=== PATIENT | male | born 1930 | race Caucasian/White ===

== ENCOUNTER 2017-12-14 03:09 | Emergency (ER) | payer MEDICARE, OTHER ==
--- NOTE | 2017-12-14 03:26 | ED Physician Documentation ---
PD HPI MALE - Stated complaint Stated Complaint: MALE - Chief complaint Chief Complaint: Abd Pain - History obtained from History obtained from: Patient - History of Present Illness Timing - onset: Yesterday Timing - details: Gradual onset, Still present Associated symptoms: Unable to urinate, Hematuria Similar symptoms before: Has not had sx before Recently seen: Not recently seen - Additional information Additional information: Patient is an 87 year old male with a history of prostate CA over 10 years ago who is presenting to the emergency department for urinary retention. Patient states that since yesterday he has not been able to fully urinate. He has had some dribble and has had some drops of blood but he has not been able to empty his bladder. Review of Systems Constitutional: denies: Fever, Chills Eyes: reports: Reviewed and negative Ears: reports: Reviewed and negative Nose: reports: Reviewed and negative Throat: reports: Reviewed and negative Cardiac: reports: Reviewed and negative GI: reports: Abdominal Pain : reports: Unable to Void, Hematuria Skin: denies: Rash, Lesions Musculoskeletal: reports: Reviewed and negative Neurologic: reports: Reviewed and negative Immunocompromised: denies: Immunocompromised PD PAST MEDICAL HISTORY - Past Medical History Past Medical History: Yes GI: GERD : Other Other Past Medical History: Prostate CA - Past Surgical History Past Surgical History: Yes - Present Medications Home Medications: Ambulatory Orders Medication Instructions Recorded Confirmed Hydrochlorothiazide 1 tab PO DAILY 12/14/17 Omeprazole 1 cap PO DAILY 12/14/17 - Allergies Allergies/Adverse Reactions: Allergies Allergy/AdvReac Type Severity Reaction Status Date / Time No Known Drug Allergies Allergy Verified 12/14/17 03:22 - Social History Does the pt smoke?: No Smoking Status: Never smoker Does the pt drink ETOH?: No Does the pt have substance abuse?: No - Immunizations Immunizations are current?: Yes - POLST Patient has POLST: No PD ED PE NORMAL - HEENT HEENT: Atraumatic - Cardiac Cardiac: RRR, No murmur - Respiratory Respiratory: No respiratory distress - Derm Derm: Normal color, Warm and dry, No rash - Extremities Extremities: No deformity - Neuro Neuro: Alert and oriented X 3, No motor deficit, No sensory deficit, Normal speech Eye Opening: Spontaneous PD ED PE EXPANDED - General General: Alert - HEENT HEENT: Dry mucous membranes - Abdomen Abdomen: Distended, Tender to palpation, Suprapubic Results - Vitals Vitals: Vital Signs - 24 hr 12/14/17 03:10 Temperature 36.5 C Heart Rate 84 Respiratory 18 Rate Blood Pressure 210/92 H O2 Saturation 98 Oxygen O2 Source Room air - Labs Labs: Laboratory Tests 12/14/17 03:34 Urine Color YELLOW Urine Clarity HAZY Urine pH 5.5 Ur Specific [place] >=1.030 H Urine Protein 100 H Urine Glucose (UA) NEGATIVE Urine Ketones TRACE Urine Occult Blood LARGE H Urine Nitrite NEGATIVE Urine Bilirubin NEGATIVE Urine Urobilinogen 0.2 (NORMAL) Ur Leukocyte Esterase NEGATIVE Urine RBC TNTC H Urine WBC 0-3 Ur Squamous Epith Cells FEW Squamous Urine Bacteria Few Urine Casts 3-5 Course Granular Ur Microscopic Review INDICATED Urine Culture Comments NOT INDICATED PD MEDICAL DECISION MAKING - ED course Complexity details: reviewed old records, reviewed results, re-evaluated patient , considered differential, d/w patient ED course: Patient was seen and examined at bedside. bladder scanner was performed and shoed that the patient had urinary retention. Catheter was placed a few clots were removed. about 500ml of urine came out. Urine was sent. Patient's bladder was flushed with 250 ml of saline and it was draining clear. patient's urine showed hematuria but did not clearly indicate infection. Patient was educated on his leg bag. Patient required no further work up and was stable for discharge with outpatient follow up. Departure - Departure Disposition: 01 Home, Self Care Clinical Impression: Acute urinary retention Condition: Good Instructions: ED Retention Urinary Male Follow-Up: [facility] [Provider Group] Dawit Elias MD [Primary Care Provider] - Within 3 Days Comments: Your symptoms today were being caused by urinary retention secondary to a clot in your urethra. You will need to see your doctor on friday and have him/her remove the catheter. You should also call the urology group to schedule a follow up appointment. You may return to the emergency department at any time for new, worsening or uncontrollable symptoms.
[2017-12-14 03:44] LABS: BILIRUBIN,URINE NEGATIVE (NEGATIVE); GLUCOSE, URINE (UA) NEGATIVE (NEGATIVE); KETONES,URINE (UA) TRACE mg/dL (NEGATIVE); LEUKOCYTE ESTERASE, URINE NEGATIVE (NEGATIVE); NITRITE,URINE NEGATIVE (NEGATIVE); OCCULT BLOOD,URINE LARGE (NEGATIVE); PH,URINE 5.5 PH (5.0-7.5); PROTEIN,URINE 100 mg/dL (NEGATIVE); UROBILINOGEN,URINE 0.2 (NORMAL) E.U./dL (NORMAL)
[2017-12-14 03:45] LABS: CLARITY,URINE HAZY (CLEAR)
[2017-12-14 03:50] LABS: BACTERIA,URINE Few /HPF (None Seen); CASTS, URINE 3-5 Course Granular /LPF; RBC,URINE TNTC /HPF (0-5); SQUAMOUS EPITHELIAL CELL,UR FEW Squamous (<= Few)
[2017-12-14 03:59] VITALS: BP 196/94
== END 2017-12-14 04:25 | disposition home or self-care (01) ==
LOC: ED 03:09
DX: R33.9 Retention of urine, unspecified (principal); Z85.46 Personal history of malignant neoplasm of prostate
CPT/HCPCS: 51703; 51798; 81001; 81003; 87086; 99283

== ENCOUNTER 2017-12-18 08:53 | Outpatient (CLI) | payer MEDICARE, OTHER ==
[2017-12-18 09:29] LABS: BASOPHILS % (AUTO) 0.8 %; EOSINOPHILS % (AUTO) 0.9 %; HGB - HEMOGLOBIN 12.6 g/dL (14.0-18.0); LYMPHOCYTES # (AUTO) 1.2 10^3/uL (1.5-3.5); LYMPHOCYTES % (AUTO) 25.2 %; MEAN CORPUSCULAR HEMOGLOBIN 33.2 pg (27.0-31.0); MEAN CORPUSCULAR HGB CONC 34.2 g/dL (32.0-36.0); MEAN CORPUSCULAR VOLUME 97.2 fL (80.0-94.0); MEAN PLATELET VOLUME 9.7 fL (7.4-11.4); MONOCYTES # (AUTO) 0.5 10^3/uL (0.0-1.0); MONOCYTES % (AUTO) 9.6 %; NEUTROPHILS # (AUTO) 3.1 10^3/uL (1.5-6.6); NEUTROPHILS % (AUTO) 63.5 %; PLT - PLATELET COUNT 119 10^3/uL (130-450); RED CELL DISTRIBUTION WIDTH 13.2 % (12.0-15.0); WHITE BLOOD COUNT 4.9 x10^3/uL (4.8-10.8)
[2017-12-18 09:39] LABS: BILIRUBIN,URINE NEGATIVE (NEGATIVE); GLUCOSE, URINE (UA) NEGATIVE (NEGATIVE); KETONES,URINE (UA) NEGATIVE (NEGATIVE); LEUKOCYTE ESTERASE, URINE NEGATIVE (NEGATIVE); NITRITE,URINE NEGATIVE (NEGATIVE); OCCULT BLOOD,URINE TRACE-INTA (NEGATIVE); PROTEIN,URINE 30 mg/dL (NEGATIVE); UROBILINOGEN,URINE 0.2 (NORMAL) E.U./dL (NORMAL)
[2017-12-18 09:47] LABS: ALBUMIN 3.9 g/dL (3.2-5.5); ALBUMIN/GLOBULIN RATIO 1.1 (1.0-2.2); ALKALINE PHOSPHATASE 63 IU/L (42-121); ALT ALANINE AMINOTRANSFERASE 19 IU/L (10-60); AST ASPARTATE AMINOTRANSFERASE 24 IU/L (10-42); BILIRUBIN,TOTAL 0.9 mg/dL (0.2-1.0); BUN - BLOOD UREA NITROGEN 21 mg/dL (6-20); CALCIUM 8.8 mg/dL (8.5-10.3); CARBON DIOXIDE - CO2 27 mmol/L (21-32); CHLORIDE 101 mmol/L (101-111); CHOL/HDL RATIO 4.2 (<5.0); CHOLESTEROL 199 mg/dL; CREATININE 1.1 mg/dL (0.6-1.2); GFR - MDRD 63 (>89); GLUCOSE 128 mg/dL (70-100); HDL CHOLESTEROL 47 mg/dL; LDL CHOLESTEROL,CALCULATED 139 mg/dL; SODIUM 139 mmol/L (135-145); TOTAL PROTEIN 7.3 g/dL (6.7-8.2); VLDL CHOLESTEROL 13 mg/dL
[2017-12-18 09:55] LABS: BACTERIA,URINE None Seen /HPF (None Seen); CLARITY,URINE HAZY (CLEAR); RBC,URINE 0-5 /HPF (0-5); SQUAMOUS EPITHELIAL CELL,UR RARE Squamous (<= Few)
[2017-12-18 09:56] LABS: MUCUS,URINE Few Strands
== END 2017-12-18 08:54 | disposition home or self-care (01) ==
LOC: LAB 08:53
PROVIDERS: ATTEND Physician Assistant Medical
DX: E78.5 Hyperlipidemia, unspecified (principal); R31.9 Hematuria, unspecified; C61 Malignant neoplasm of prostate; K21.9 Gastro-esophageal reflux disease without esophagitis
CPT/HCPCS: 36415; 80053; 80061; 81001; 85025; G0103; 83721; 84153; 87086

== ENCOUNTER 2018-02-12 09:02 | Outpatient (CLI) | payer MEDICARE, OTHER ==
[2018-02-12 09:23] LABS: CREATININE 1.2 mg/dL (0.6-1.2)
== END 2018-02-12 09:03 | disposition home or self-care (01) ==
LOC: LAB 09:02
PROVIDERS: ATTEND Physician Assistant
DX: R31.0 Gross hematuria (principal)
CPT/HCPCS: 36415; 82565; 84520

== ENCOUNTER 2018-02-16 08:26 | Outpatient (CLI) | payer MEDICARE, OTHER ==
[2018-02-16] MEDS ORDERED: IOPAMIDOL-300 100 ML VIAL ONE (09:31)
[2018-02-16] MEDS ORDERED: IOPAMIDOL-300 100 ML VIAL IVP ONE (10:01)
--- NOTE | 2018-02-16 12:24 | CT Report ---
CT IVP: 02/16/2018 CLINICAL INDICATION: Gross hematuria. TECHNIQUE: Axial CT images of the abdomen and pelvis were obtained prior to and following 100 mL Isovue 300 intravenously, using split bolus technique. COMPARISON: No previous CT is available for comparison. FINDINGS: Limited evaluation of the lung bases is unremarkable. A moderate hiatal hernia is incidentally noted. ABDOMEN: On the unenhanced images, there is no evidence of nephrolithiasis or hydronephrosis. The kidneys demonstrate symmetric uptake and excretion of contrast. Cortical cysts are present. No solid renal mass or hydronephrosis is present. The liver, spleen, pancreas and adrenal glands are unremarkable. The gallbladder is not dilated. No bowel dilatation, free gas, or free fluid is present. No abdominal adenopathy is seen. PELVIS: The distal ureters are unremarkable. Brachytherapy seeds are noted in the prostate bed. No pelvic adenopathy or free fluid is present. The appendix is seen in the right lower quadrant and is normal in caliber. Osseous structures demonstrate degenerative changes. IMPRESSION: 1. NO EVIDENT ETIOLOGY FOR THE PATIENT'S HEMATURIA. CONSIDER CORRELATION WITH CYSTOSCOPY. 2. MODERATE HIATAL HERNIA. CT DOSE REDUCTION STATEMENT In accordance with CT protocol optimization, one or more of the following dose reduction techniques were utilized for this exam: automated exposure control, adjustment of mA and/or KV based on patient size, or use of iterative reconstructive technique. TD: 02/16/2018 12:23
== END 2018-02-16 08:27 | disposition home or self-care (01) ==
LOC: LAB 08:26 → DI 08:27
PROVIDERS: ATTEND Physician Assistant
DX: R31.0 Gross hematuria (principal)
CPT/HCPCS: 74178; Q9967

== ENCOUNTER 2018-12-23 14:39 | Outpatient (CLI) | payer MEDICARE, OTHER ==
[2018-12-23 15:00] LABS: CALCIUM 8.9 mg/dL (8.5-10.3); CREATININE 1.1 mg/dL (0.6-1.2)
== END 2018-12-23 14:40 | disposition home or self-care (01) ==
LOC: LAB 14:39
PROVIDERS: ATTEND Urology
DX: N32.89 Other specified disorders of bladder (principal); Z85.51 Personal history of malignant neoplasm of bladder
CPT/HCPCS: 36415; 80048

== ENCOUNTER 2019-06-08 14:08 | Outpatient (CLI) | payer MEDICARE, OTHER ==
[2019-06-08 14:48] LABS: CREATININE 1.4 mg/dL (0.6-1.2)
== END 2019-06-08 14:09 | disposition home or self-care (01) ==
LOC: LAB 14:08
PROVIDERS: ATTEND Urology
DX: Z08 Encounter for follow-up examination after completed treatment for malignant neoplasm (principal); Z85.51 Personal history of malignant neoplasm of bladder
CPT/HCPCS: 36415; 82565; 84520

== ENCOUNTER 2019-06-09 08:57 | Outpatient (CLI) | payer MEDICARE, OTHER ==
[2019-06-09] MEDS ORDERED: IOVERSOL 320 100 ML VIAL IVP ONE ×2 (09:32→09:44)
--- NOTE | 2019-06-10 11:13 | CT Report ---
Reason: HISTORY OF BLADDER CANCER Procedure Date: 06/09/2019 Accession Number: [id number] / [id number] Procedure: CT - IVP CPT Code: FULL RESULT: EXAM: CT ABDOMEN AND PELVIS WITHOUT AND WITH CONTRAST (CT IVP) EXAM DATE: 06/09/2019 10:05 AM. CLINICAL HISTORY: History of bladder cancer. COMPARISONS: IVP 02/16/2018 9:36 AM. TECHNIQUE: Routine helical imaging was performed through the kidneys, ureters and bladder in the precontrast, postcontrast and delayed phase. IV Contrast: OPTI 320 100 mL. Reconstructions: Coronal and sagittal. In accordance with CT protocol optimization, one or more of the following dose reduction techniques were utilized for this exam: automated exposure control, adjustment of mA and/or KV based on patient size, or use of iterative reconstructive technique. FINDINGS: Lung Bases: There is a 1 cm left lung nodule, not significantly changed as visualized. Both lung bases demonstrate dependent changes. Liver: Hypoattenuating consistent with hepatic steatosis. Gallbladder/Bile Ducts: Unremarkable. Spleen: Normal. Pancreas: Normal. Adrenal Glands: Normal. Kidneys/Bladder: Right Kidney/Ureter: No renal or ureteral stones. No hydronephrosis or hydroureter. Renal hypodensities too small to characterize are identified. Left Kidney/Ureter: No renal or ureteral stones. No hydronephrosis or hydroureter. Both an exophytic 8 x 6.5 cm renal cyst and a 1.8 x 1.8 cm renal cyst measuring greater than simple fluid by CT criteria; these have not significantly changed compared to 2018. Additional renal hypodensities are too small to characterize. Bladder: No stones. No wall thickening or mass with change of the bladder base contour presumably related to the prostate discussed below. Peritoneal Cavity/Bowel: Normal. No free fluid, free air or adenopathy. No masses or acute inflammatory process. Pelvic Organs: Prostate is again noted to contain fiducial markers and hypertrophied with dome of the prostate indenting the base of the bladder in a configuration similar to before. Vasculature: No aneurysms or other significant abnormality. Bones: No definite aggressive osseous lesions. Other: None. IMPRESSION: Recommend renal ultrasound to determine whether the left renal cysts can be characterized as simple. Stable CT appearance of bladder and prostate. RADIA
== END 2019-06-09 08:58 | disposition home or self-care (01) ==
LOC: DI 08:57
PROVIDERS: ATTEND Urology
DX: N28.1 Cyst of kidney, acquired (principal); Z85.51 Personal history of malignant neoplasm of bladder
CPT/HCPCS: 74178; Q9967

== ENCOUNTER 2019-08-12 12:44 | Emergency (ER) | payer MEDICARE, OTHER ==
[2019-08-12 13:01] VITALS: BP 144/72
--- NOTE | 2019-08-12 13:34 | ED Physician Documentation ---
PD HPI MALE - Stated complaint Stated Complaint: CATH REMOVAL - Chief complaint Chief Complaint: General - History obtained from History obtained from: Patient, Family - History of Present Illness Timing - onset: Today Timing - duration: Hours Timing - details: Abrupt onset, Still present in ED Associated symptoms: Hong problem Similar symptoms before: Has not had sx before Recently seen: Surgery - Additional information Additional information: 88-year-old male who has a history of bladder cancer has been undergoing routine repeat cystoscopy and he has had cystoscopy done about 3 days ago he has had a catheter in place since then and he was getting ready to remove the catheter himself under the instruction of his urologist when he discovered that he was unable to do this. It appears he was using the wrong port to attempt to deflate the balloon. He is here now for us to remove the catheter for him. Review of Systems Constitutional: denies: Fever Eyes: denies: Decreased vision Ears: denies: Ear pain Nose: denies: Congestion Throat: denies: Sore throat Respiratory: denies: Cough GI: denies: Nausea, Vomiting : reports: Hong Problem. denies: Dysuria, Frequency PD PAST MEDICAL HISTORY - Past Medical History GI: GERD : Other - Past Surgical History Past Surgical History: Yes - Present Medications Home Medications: Ambulatory Orders Medication Instructions Recorded Confirmed Hydrochlorothiazide 1 tab PO DAILY 12/14/17 Omeprazole 1 cap PO DAILY 12/14/17 - Allergies Allergies/Adverse Reactions: Allergies Allergy/AdvReac Type Severity Reaction Status Date / Time No Known Drug Allergies Allergy Verified 08/12/19 12:58 - Social History Does the pt smoke?: No Smoking Status: Never smoker Does the pt drink ETOH?: No Does the pt have substance abuse?: No - Immunizations Immunizations are current?: Yes - POLST Patient has POLST: No PD ED PE NORMAL - Vitals Vital signs reviewed: Yes (hypertensive ) - General General: No acute distress, Well developed/nourished - HEENT HEENT: Atraumatic, PERRL, EOMI - Respiratory Respiratory: No respiratory distress - Derm Derm: Normal color, Warm and dry, No rash - Extremities Extremities: No deformity, No edema - Neuro Neuro: Alert and oriented X 3, clinical exercise physiologist 2-12 intact, No motor deficit, No sensory deficit, Normal speech Eye Opening: Spontaneous Motor: Obeys Commands Verbal: Oriented GCS Score: 15 - Psych Psych: Normal mood, Normal affect Results - Vitals Vitals: Vital Signs - 24 hr 08/12/19 12:58 Temperature 36.8 C Heart Rate 89 Respiratory 17 Rate Blood Pressure 144/72 H O2 Saturation 98 Oxygen O2 Source Room air PD MEDICAL DECISION MAKING - ED course Complexity details: considered differential, d/w patient, d/w family ED course: 88-year-old male with indwelling Hong catheter has used the wrong port to attempt to deflate the balloon and the RN is able to remove the catheter. Departure - Departure Disposition: 01 Home, Self Care Clinical Impression: Encounter for Hong catheter removal Condition: Stable Instructions: ED Catheter Care Hong Follow-Up: Nina Aden MD [Physician No Access] -
== END 2019-08-12 13:53 | disposition home or self-care (01) ==
LOC: ED 12:44
DX: Z46.6 Encounter for fitting and adjustment of urinary device (principal); Z85.51 Personal history of malignant neoplasm of bladder
CPT/HCPCS: 99282; 99283

== ENCOUNTER 2019-09-30 13:18 | Emergency (ER) | payer MEDICARE, OTHER ==
--- NOTE | 2019-09-30 13:54 | ED Physician Documentation ---
PD HPI NVD - Stated complaint Stated Complaint: FEVER - Chief complaint Chief Complaint: Fever - History obtained from History obtained from: Patient (This is a relatively healthy 89-year-old gentleman with remote history of prostate cancer, he had some sort of bladder abnormality that was assessed by cystoscopy on August 10 and it was found that he had probably bladder cancer around an old radiation seed from his prostate cancer. He has a repeat cystoscopy scheduled for next month, but for the last 3 to 4 weeks he has been having some intermittent low back pain along with purulent-looking urine and urinary incontinence and chills and weakness.) Review of Systems Constitutional: reports: Chills. denies: Fever Nose: denies: Rhinorrhea / runny nose, Congestion Cardiac: denies: Chest pain / pressure, Palpitations Respiratory: denies: Dyspnea, Cough PD PAST MEDICAL HISTORY - Past Medical History GI: GERD : Other - Past Surgical History Past Surgical History: Yes - Present Medications Home Medications: Ambulatory Orders Medication Instructions Recorded Confirmed Hydrochlorothiazide 1 tab PO DAILY 12/14/17 Omeprazole 1 cap PO DAILY 12/14/17 Ciprofloxacin HCl [Cipro] 500 mg PO BID #20 tablet 09/30/19 - Allergies Allergies/Adverse Reactions: Allergies Allergy/AdvReac Type Severity Reaction Status Date / Time No Known Drug Allergies Allergy Verified 09/30/19 13:29 - Social History Does the pt smoke?: No Smoking Status: Never smoker Does the pt drink ETOH?: No Does the pt have substance abuse?: No - Immunizations Immunizations are current?: Yes - POLST Patient has POLST: No PD ED PE NORMAL - Vitals Vital signs reviewed: Yes - General General: Alert and oriented X 3, No acute distress - Abdomen Abdomen: Normal bowel sounds, Soft, Non tender - Back Back: No CVA TTP, No spinal TTP - Neuro Neuro: Alert and oriented X 3, Normal speech Results - Vitals Vitals: Vital Signs - 24 hr 09/30/19 13:29 Temperature 37.1 C Heart Rate 73 Respiratory 16 Rate Blood Pressure 136/68 H O2 Saturation 97 Oxygen O2 Source Room air - Labs Labs: Laboratory Tests 09/30/19 13:43 Urine Color YELLOW Urine Clarity SL. CLOUDY Urine pH 6.0 Ur Specific [place] 1.025 Urine Protein 100 H Urine Glucose (UA) NEGATIVE Urine Ketones TRACE Urine Occult Blood SMALL H Urine Nitrite NEGATIVE Urine Bilirubin NEGATIVE Urine Urobilinogen 1 (NORMAL) Ur Leukocyte Esterase MODERATE H Urine RBC 0-5 Urine WBC >25 H Ur Squamous Epith Cells RARE Squamous Urine Bacteria Moderate H Ur Microscopic Review INDICATED Urine Culture Comments INDICATED PD MEDICAL DECISION MAKING - ED course ED course: 89-year-old gentleman presents with fairly typical symptoms for a bladder infection and found to have same treated with Cipro. Departure - Departure Disposition: 01 Home, Self Care Clinical Impression: Cystitis Condition: Good Record reviewed to determine appropriate education?: Yes Instructions: ED UTI Cystitis Male Prescriptions: Ciprofloxacin HCl [Cipro] 500 mg PO BID #20 tablet Comments: Follow-up with urologist as scheduled. Return for new or worsening symptoms. We will culture your urine, the results should be done in 48-72 hours. If an antibiotic change is necessary we will call you. Return if worse in the meantime, especially if you develop increasing flank pain, fevers, or cannot keep down the medication.
[2019-09-30 14:06] LABS: BILIRUBIN,URINE NEGATIVE (NEGATIVE); GLUCOSE, URINE (UA) NEGATIVE (NEGATIVE); KETONES,URINE (UA) TRACE mg/dL (NEGATIVE); LEUKOCYTE ESTERASE, URINE MODERATE (NEGATIVE); NITRITE,URINE NEGATIVE (NEGATIVE); OCCULT BLOOD,URINE SMALL (NEGATIVE); PROTEIN,URINE 100 mg/dL (NEGATIVE); UROBILINOGEN,URINE 1 (NORMAL) E.U./dL (NORMAL)
[2019-09-30 14:10] LABS: CLARITY,URINE SL. CLOUDY (CLEAR)
[2019-09-30 14:31] LABS: BACTERIA,URINE Moderate /HPF (None Seen); RBC,URINE 0-5 /HPF (0-5); SQUAMOUS EPITHELIAL CELL,UR RARE Squamous (<= Few)
[2019-09-30] MEDS ORDERED: CIPROFLOXACIN 250 MG TABLET PO STA (14:40)
[2019-09-30 14:55] VITALS: BP 146/67
== END 2019-09-30 14:55 | disposition home or self-care (01) ==
LOC: ED 13:18
DX: N30.90 Cystitis, unspecified without hematuria (principal); Z85.46 Personal history of malignant neoplasm of prostate
CPT/HCPCS: 81001; 87077; 87086; 87181; 99283; A9270; 81003

== ENCOUNTER 2019-10-06 10:09 | Inpatient (IN) | payer MEDICARE, OTHER ==
--- NOTE | 2019-10-06 11:18 | ED Physician Documentation ---
History of Present Illness - Stated complaint Stated Complaint: FEVER - Chief complaint Chief Complaint: Fever - Additonal information Additional information: This is an 89-year-old male who presents with fever, fatigue, urinary symptoms. 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 This was recently resected at [facility] on 08/10. Since his surgery on 08/10 he has had some dribbling of his urine and he also developed in the last several weeks intermittent fever and some suprapubic mild discomfort. He was noted by his Family to be somewhat "foggy headed" or less sharp than usual. He was brought here and had a urine test done which showed elevated white blood cell count in the urine on 09/30 he was treated with ciprofloxacin but his symptoms did not improve. He continues to have some intermittent mild Fever up to 100.5 F. He also does have some urinary hesitancy, as well as dribbling. His right leg has had painless edema without erythema for last 2 days. He has no history of blood clots. No chest pain, no shortness of breath. No blood in his stool. From his description he actually had a radiation seed in his prostate that ended up trans-locating into his urethra or bladder, and this formed some type of mass which was then resected by his urologist and confirmed to be cancerous. He states that it was more in his urethra were worried it was going to spread to his bladder. Review of Systems Constitutional: reports: Fever Cardiac: denies: Chest pain / pressure Respiratory: denies: Dyspnea GI: reports: Other (Reduced appetite) : reports: Dysuria, Frequency, Hesitancy Skin: denies: Rash Neurologic: reports: Generalized weakness PD PAST MEDICAL HISTORY - Past Medical History Past Medical History: Yes GI: GERD : Other Other Past Medical History: bladder ca - Past Surgical History Past Surgical History: Yes - Present Medications Home Medications: Ambulatory Orders Medication Instructions Recorded Confirmed Hydrochlorothiazide 1 tab PO DAILY 12/14/17 Omeprazole 1 cap PO DAILY 12/14/17 Ciprofloxacin HCl [Cipro] 500 mg PO BID #20 tablet 09/30/19 Cefdinir 300 mg PO BID #20 capsule 10/06/19 - Allergies Allergies/Adverse Reactions: Allergies Allergy/AdvReac Type Severity Reaction Status Date / Time No Known Drug Allergies Allergy Verified 09/30/19 13:29 - Social History Does the pt smoke?: No Smoking Status: Never smoker Does the pt drink ETOH?: No Does the pt have substance abuse?: No - Immunizations Immunizations are current?: Yes - POLST Patient has POLST: No PD ED PE NORMAL - Vitals Vital signs reviewed: Yes - General General: Alert and oriented X 3, No acute distress - HEENT HEENT: PERRL - Neck Neck: Supple, no meningeal sign - Cardiac Cardiac: RRR, No murmur - Respiratory Respiratory: No respiratory distress, Clear bilaterally - Abdomen Abdomen: Soft, Non tender, Non distended - Derm Derm: Warm and dry - Extremities Extremities: No deformity - Neuro Neuro: Alert and oriented X 3, automobile racer 2-12 intact, No motor deficit, No sensory deficit, Normal speech - Psych Psych: Normal mood, Normal affect Results - Vitals Vitals: Vital Signs - 24 hr 10/06/19 10/06/19 10/06/19 10:27 13:00 16:16 Temperature 36.8 C 36.4 C L Heart Rate 93 50 L 66 Respiratory 20 16 14 Rate Blood Pressure 109/50 L 106/60 130/74 O2 Saturation 97 96 97 Oxygen O2 Source Room air - Labs Labs: Microbiology 10/06/19 15:54 Occult Blood - Final Stool Laboratory Tests 10/06/19 10/06/19 10/06/19 11:53 11:53 11:53 WBC 7.4 RBC 2.47 L Hgb 7.7 L Hct 24.5 L MCV 99.2 H MCH 31.2 H MCHC 31.4 L RDW 12.5 Plt Count 254 MPV 10.3 Neut # (Auto) 6.0 Lymph # (Auto) 0.7 L [place] # (Auto) 0.7 Eos # (Auto) 0.0 Baso # (Auto) 0.0 Absolute Nucleated RBC 0.00 Nucleated RBC % 0.0 Sodium 138 Potassium 3.0 L Chloride 99 L Carbon Dioxide 29 Anion Gap 10.0 BUN 30 H Creatinine 1.4 H Estimated GFR (MDRD) 48 L Glucose 134 H Lactic Acid 1.4 Calcium 8.4 L Total Bilirubin 0.4 AST 52 H ALT 41 Alkaline Phosphatase 71 Total Protein 6.2 L Albumin 2.2 L Globulin 4.0 Albumin/Globulin Ratio 0.6 L Lipase 35 Urine Color Urine Clarity Urine pH Ur Specific [place] Urine Protein Urine Glucose (UA) Urine Ketones Urine Occult Blood Urine Nitrite Urine Bilirubin Urine Urobilinogen Ur Leukocyte Esterase Urine RBC Urine WBC Ur Squamous Epith Cells Amorphous Sediment Urine Bacteria Urine Casts Ur Microscopic Review Urine Culture Comments 10/06/19 14:28 WBC RBC Hgb Hct MCV MCH MCHC RDW Plt Count MPV Neut # (Auto) Lymph # (Auto) [place] # (Auto) Eos # (Auto) Baso # (Auto) Absolute Nucleated RBC Nucleated RBC % Sodium Potassium Chloride Carbon Dioxide Anion Gap BUN Creatinine Estimated GFR (MDRD) Glucose Lactic Acid Calcium Total Bilirubin AST ALT Alkaline Phosphatase Total Protein Albumin Globulin Albumin/Globulin Ratio Lipase Urine Color YELLOW Urine Clarity CLOUDY Urine pH 5.0 Ur Specific [place] >=1.030 H Urine Protein 100 H Urine Glucose (UA) NEGATIVE Urine Ketones NEGATIVE Urine Occult Blood SMALL H Urine Nitrite NEGATIVE Urine Bilirubin SMALL H Urine Urobilinogen 1 (NORMAL) Ur Leukocyte Esterase SMALL H Urine RBC 0-5 Urine WBC >25 H Ur Squamous Epith Cells RARE Squamous Amorphous Sediment Few Urine Bacteria Few Urine Casts 0-2 Hyaline Casts Ur Microscopic Review INDICATED Urine Culture Comments INDICATED - Rads (name of study) Duplex US Radiology: Other (No evidence for DVT in the right lower extremity, there is a 2.7 cm hypervascular lymph node in the right groin, and there is an avascular anechoic fluid collection at the anterior aspect of the knee of unclear etiology.) PD MEDICAL DECISION MAKING - ED course Complexity details: considered differential (UTI, bacteremia, electrolyte abnormality, dehydration anemia) ED course: On arrival patient is nontoxic-appearing, vital signs are unremarkable, his diastolic blood pressure is a little low at 50, but he is not feeling lightheaded and his blood pressure stable on multiple readings. His heart rate is also within normal limits. He had labs drawn, his chemistry panel reveals a mild hypokalemia which was repleted orally, and a creatinine of 1.4 which is stable from his last visit. His lactate is normal. He has a hemoglobin of 7.7, and in our most recent labs from 2018 his baseline appears to be 12.6. He has not been told that he has a anemia in the past to his knowledge. It sound like he had minimal bleeding associated with his surgery. He denies any dark stools or bright red blood in his stool, and he has not had any significant hematuria. Rectal exam reveals positive occult blood. Records from [facility] were requested to obtain information about his surgery as well as his most recent set of blood counts. Urine shows greater than 25 white blood cells, reviewing the microbiology he has an aerobacter and enterobacter infection, the Aerobacter bacteria was resistant to fluoroquinolones, which is probably why he has not been responding to ciprofloxacin Despite being on it for 5 days. He was given a gram of ceftriaxone here. We did check for urinary obstruction with a bladder scan as well as a bedside ultrasound, and the bladder appeared decompressed. Regarding his right leg swelling, there are no signs of DVT on our study today, he did have an enlarged lymph node I reviewed this with him explained this could be secondary to infection, though given his history of the cancer It warrants surveillance and potentially further work-up if it persists. I also discussed that he needs a repeat ultrasound in 2 weeks if his leg swelling is not improving. He has an anterior knee fluid collection but he has no erythema or fluctuance in this area, no signs of abscess or infection, this may be a cystic structure but I doubt is the cause of his swelling. Patient has no chest pain, shortness of breath, or symptoms of cardiopulmonary problems. Given the fact that he has a low hemoglobin with blood present in his stool, as well as the fact that he has a urinary tract infection which is now responded to oral therapy, he was admitted to the hospital. He did have Blood cultures drawn prior to the administration of antibiotics. I reviewed patient's labs with him, and did review that he has some results that he will need to follow-up with his PCP on when he is discharge from the hospital. Patient verbalizes understanding. His vital signs remained stable at the time of admission Departure - Departure Disposition: 66 [facility] DC/Xfer Clinical Impression: Occult blood in stools, Low hemoglobin UTI (urinary tract infection) Qualifiers: Urinary tract infection type: site unspecified Hematuria presence: without hematuria Qualified Code(s): N39.0 - Urinary tract infection, site not specified Condition: Good
[2019-10-06 12:02] LABS: BASOPHILS % (AUTO) 0.4 %; EOSINOPHILS % (AUTO) 0.1 %; HGB - HEMOGLOBIN 7.7 g/dL (14.0-18.0); LYMPHOCYTES # (AUTO) 0.7 10^3/uL (1.5-3.5); LYMPHOCYTES % (AUTO) 8.9 %; MEAN CORPUSCULAR HEMOGLOBIN 31.2 pg (27.0-31.0); MEAN CORPUSCULAR HGB CONC 31.4 g/dL (32.0-36.0); MEAN CORPUSCULAR VOLUME 99.2 fL (80.0-94.0); MEAN PLATELET VOLUME 10.3 fL (7.4-11.4); MONOCYTES # (AUTO) 0.7 10^3/uL (0.0-1.0); MONOCYTES % (AUTO) 9.4 %; NEUTROPHILS % (AUTO) 80.8 %; PLT - PLATELET COUNT 254 10^3/uL (130-450); RED BLOOD COUNT 2.47 10^6/uL (4.70-6.10); RED CELL DISTRIBUTION WIDTH 12.5 % (12.0-15.0); WHITE BLOOD COUNT 7.4 x10^3/uL (4.8-10.8)
[2019-10-06 12:12] LABS: ALBUMIN 2.2 g/dL (3.2-5.5); ALBUMIN/GLOBULIN RATIO 0.6 (1.0-2.2); BILIRUBIN,TOTAL 0.4 mg/dL (0.2-1.0); CALCIUM 8.4 mg/dL (8.5-10.3); CREATININE 1.4 mg/dL (0.6-1.2); TOTAL PROTEIN 6.2 g/dL (6.7-8.2)
[2019-10-06 14:37] LABS: GLUCOSE, URINE (UA) NEGATIVE (NEGATIVE); KETONES,URINE (UA) NEGATIVE (NEGATIVE); LEUKOCYTE ESTERASE, URINE SMALL (NEGATIVE); NITRITE,URINE NEGATIVE (NEGATIVE); OCCULT BLOOD,URINE SMALL (NEGATIVE); PROTEIN,URINE 100 mg/dL (NEGATIVE); UROBILINOGEN,URINE 1 (NORMAL) E.U./dL (NORMAL)
[2019-10-06 14:46] LABS: CLARITY,URINE CLOUDY (CLEAR)
[2019-10-06 14:47] LABS: BILIRUBIN,URINE SMALL (NEGATIVE); ICTOTEST,URINE POSITIVE
[2019-10-06 14:48] LABS: AMORPHOUS SEDIMENT,UR Few /LPF; BACTERIA,URINE Few /HPF (None Seen); CASTS, URINE 0-2 Hyaline Casts /LPF; RBC,URINE 0-5 /HPF (0-5); SQUAMOUS EPITHELIAL CELL,UR RARE Squamous (<= Few)
[2019-10-06] MEDS ORDERED: POTASSIUM CHLORIDE 20 MEQ TABLET PO STA (15:02)
--- NOTE | 2019-10-06 15:52 | Ultrasound Report ---
Reason: RLE edema Procedure Date: 10/06/2019 Accession Number: [id number] / [id number] Procedure: US - Duplex Ext Veins Right CPT Code: Final Report FULL RESULT: EXAM: RIGHT LOWER EXTREMITY VENOUS ULTRASOUND EXAM DATE: 10/06/2019 03:06 PM. CLINICAL HISTORY: RLE edema. COMPARISON: None. TECHNIQUE: Real-time sonographic vascular imaging was performed by the senior energy market coordinator through the lower extremity utilizing both color-flow and Doppler spectral analysis. Multiple sales representative education courses static images were saved for review. FINDINGS: Common Femoral Vein (CFV): Normal. CFV-GSV Junction: Normal. Profunda Femoral Vein (PFV): Normal. Femoral Vein (FV) Prox: Normal. Femoral Vein (FV) Mid: Normal. Femoral Vein (FV) Dist: Normal. Popliteal Vein: Normal. Posterior Tibial Veins: Normal. Peroneal Veins: Normal. Contralateral Side CFV: Normal. Other: Enlarged lymph node in the groin measuring 2 x 2.7 cm is seen with increased internal vascularity. Also noted is a 3 x 7 x 1.8 x 0.7 cm fluid collection at the anterior aspect of the right knee. IMPRESSION: 1. No evidence for right lower extremity DVT. 2. 2.7 cm enlarged hypervascular lymph node in the right groin a suspicious given history of bladder carcinoma. 3. Avascular anechoic fluid collection at the anterior aspect of the knee measuring up to 3.7 cm of unclear etiology. RADIA
[2019-10-06] MEDS ORDERED: cefTRIAXone 1 GM in SODIUM CHLORIDE 0.9% MINIBAG 100 ML IV STA (16:27)
[2019-10-06] MEDS ORDERED: ONDANSETRON 4 MG/2 ML VIAL IVP PRN (17:08)
[2019-10-06] MEDS: SODIUM CHLORIDE 0.9% 1,000 ML IV SCH (18:42)
[2019-10-06] MEDS: SODIUM CHLORIDE FLUSH 0.9% 10 ML SYRINGE IVP PRN (18:48)
[2019-10-06] MEDS ORDERED: CYCLOBENZAPRINE 10 MG TABLET PO PRN (19:41)
--- NOTE | 2019-10-06 19:46 | HISTORY & PHYSICAL EXAMINATION ---
Chief Complaint - Chief Complaint Chief Complaint: not feeling well History of Present Illness - Admitted From Admitted From:: [facility] - History Obtained From Records Reviewed: yes History obtained from: patient and family - History of Present Illness HPI Comment/Other: Patient is an 89 y/o male who presented to the ED with complain of not feeling well for the past 3-4 weeks. He was initially seen in the ED in the beginning of August for removal of a khoury catheter. He returned 1 week ago because he was still not feeling well. He was found to have a UTI and given a 5-day course of Cipro. He was also advised to return if there was no improvement thus leading to his return. On further review it was found that 2 bacteria grew from the urine culture E. faecalis and Aerococcus urinae. Aerococcus was not sensitive to Cipro. He was also found to have a hemoglobin of 7.7. On August 10 2019, it was 12.6. He denies dark tarry stools, coffee ground emesis or any traumatic event from which he would have bled profusely. He last had a colonoscopy 8-9 yrs ago, during which a polyp was found. He denied chest pain, dyspnea, abd pain, n/v/d. He reports back spasm. He has been diagnosed with bladder cancer and is schedule to follow up with [facility] for further treatment. History - Past Medical History Cardiovascular: reports: Hypertension Neuro: reports: None GI: reports: GERD : reports: Other (Prostate cancer, Bladder cancer) Musculoskeletal: reports: Chronic back pain, Other MRSA Hx?: No Other Past Medical History: bladder ca - Past Surgical History General: reports: Colonoscopy, Other Ortho: reports: Arthroscopic surgery, Other - Family & Social History Family History: Father: Cancer (lung and brain) Living arrangement: At home Social History Notes: He does not smoke or use illicit substances. He has 1-2 drinks daily - POLST Patient has POLST: No POLST Status: Full Code Meds/Allgy - Home Medications Home Medications: Ambulatory Orders Medication Instructions Recorded Confirmed Hydrochlorothiazide 1 tab PO DAILY 12/14/17 Omeprazole 1 cap PO DAILY 12/14/17 Ciprofloxacin HCl [Cipro] 500 mg PO BID #20 tablet 09/30/19 Cefdinir 300 mg PO BID #20 capsule 10/06/19 - Allergies Allergies/Adverse Reactions: Allergies Allergy/AdvReac Type Severity Reaction Status Date / Time No Known Drug Allergies Allergy Verified 09/30/19 13:29 Review of Systems - Constitutional Constitutional: reports: Fatigue, Malaise. denies: Fever, Chills - Eyes Eyes: denies: Pain, Blurred vision, Dipolpia - Ears, Nose & Throat Ears, Nose & Throat: denies: Vertigo, Sore throat - Cardiovascular Cariovascular: denies: Irregular heart rate, Palpitations, Chest pain, Lightheadedness, Syncope, Exertional dyspnea - Respiratory Respiratory: denies: Cough, Wheezing, SOB at rest, SOB with exertion - Gastrointestinal Gastrointestinal: reports: Reflux/heartburn. denies: Abdominal pain, Abdominal distention, Constipation, Diarrhea, Black stools, Bloody stools, Nausea, Vomiting, Coffee grounds emesis - Genitourinary Genitourinary: denies: Dysuria, Frequency, Urgency, Hematuria - Musculoskeletal Musculoskeletal: reports: Back pain - Integumentary Integumentary: denies: Rash, Pruritis, Lesions - Neurological Neurological: denies: General weakness, Focal weakness, Headache - Psychiatric Psychiatric: denies: Depression, Anxiety - Endocrine Endocrine: denies: Polyuria, Polydypsia - Hematologic/Lymphatic Hematologic/Lymphatic: reports: Anemia. denies: Bruising, Petechiae Prior Level of Functionality: Patient is independent of activities of daily living Exam - Vital Signs Vital Signs: Vital Signs x48h Temp Pulse Pulse Resp BP BP Pulse Ox 10/06/19 18:04 37.3 C 81 154/62 H 90 L 10/06/19 16:16 36.4 C L 66 14 130/74 97 10/06/19 13:00 50 L 16 106/60 96 - Physical Exam General Appearance: positive: No acute distress, Alert Eyes Bilateral: positive: Normal inspection, PERRL, EOMI ENT: positive: ENT inspection nml Neck: positive: Nml inspection, No JVD, Trachea midline Respiratory: positive: Chest non-tender, No respiratory distress, Breath sounds nml. negative: Wheezes, Rales, Rhonchi Cardiovascular: positive: Regular rate & rhythm, No murmur Abdomen: positive: Non-tender, No organomegaly, Nml bowel sounds, No distention. negative: Guarding, Rebound Rectal: positive: Stool - heme POS Back: positive: Nml inspection Skin: positive: Color nml, No rash, Warm, Dry Extremities: positive: Non-tender, Full ROM, Nml appearance Neurologic/Psychiatric: positive: Oriented x3, CN's nml (2-12), Mood/affect nml Conclusion/Plan - Problem List (1) UTI (urinary tract infection) Conclusion/Plan: Urine culture grew E. Faecalis and Aerococcus urinae. Patient started on rocephin. Will continue IV hydration with normal saline Qualifiers: Urinary tract infection type: site unspecified Hematuria presence: without hematuria Qualified Code(s): N39.0 - Urinary tract infection, site not specified (2) Anemia Conclusion/Plan: Likely 2/2 GI bleed. Patient was guaic positive However MCV indicates macrocytic Will consult Gen Surgery for possibly EGD and colonoscopy Last colonoscopy was 8-9 yrs ago. Benign polyp noted Iron studies, Vit B12 and folate Protonix daily (3) GI bleed Conclusion/Plan: Gen Surg Consult for endoscopy Monitor hemoglobin. Protonix daily (4) Hypertension Conclusion/Plan: Will order hydralazine prn (5) Hypokalemia Conclusion/Plan: ? 2/2 HCTZ. Will hold. Correct potassium. Recheck in the am. Also check Mg in the am (6) VIRGINIE (acute kidney injury) Conclusion/Plan: ?2/2 UTI On rocephin. Receiving IV hydration. Expecting improvement. Will monitor. (7) Bladder cancer Conclusion/Plan: Patient to follow up with as planned [facility] for treatment. - Lab Results Fish Bones: 10/06/19 11:53 10/06/19 11:53 Core Measures - Anticipated LOS I expect patient to be DC'd or transferred within 96 hours.: Yes - DVT/VTE - Prophylaxis VTE/DVT Device ordered at admit?: Yes
[2019-10-06] MEDS ORDERED: hydrALAZINE INJ 20 MG/ML VIAL IVP PRN (20:54)
[2019-10-06] MEDS ORDERED: FAMOTIDINE 20 MG TABLET PO SCH (21:00)
[2019-10-07] MEDS: ACETAMINOPHEN 325 MG TABLET PO PRN ×3 (00:09→17:07)
[2019-10-07] MEDS: SODIUM CHLORIDE FLUSH 0.9% 10 ML SYRINGE IVP SCH ×3 (00:11→17:00)
[2019-10-07 04:57] LABS: BASOPHILS % (AUTO) 0.3 %; EOSINOPHILS % (AUTO) 0.1 %; HGB - HEMOGLOBIN 7.9 g/dL (14.0-18.0); LYMPHOCYTES # (AUTO) 0.8 10^3/uL (1.5-3.5); LYMPHOCYTES % (AUTO) 9.3 %; MEAN CORPUSCULAR HEMOGLOBIN 31.1 pg (27.0-31.0); MEAN CORPUSCULAR HGB CONC 31.7 g/dL (32.0-36.0); MEAN PLATELET VOLUME 10.5 fL (7.4-11.4); MONOCYTES # (AUTO) 0.7 10^3/uL (0.0-1.0); MONOCYTES % (AUTO) 7.6 %; NEUTROPHILS # (AUTO) 7.4 10^3/uL (1.5-6.6); PLT - PLATELET COUNT 256 10^3/uL (130-450); RED BLOOD COUNT 2.54 10^6/uL (4.70-6.10); RED CELL DISTRIBUTION WIDTH 12.6 % (12.0-15.0)
[2019-10-07 05:17] LABS: ALBUMIN 2.2 g/dL (3.2-5.5); ALBUMIN/GLOBULIN RATIO 0.6 (1.0-2.2); BILIRUBIN,TOTAL 0.5 mg/dL (0.2-1.0); CREATININE 1.2 mg/dL (0.6-1.2); MAGNESIUM 1.7 mg/dL (1.7-2.8); TOTAL PROTEIN 6.2 g/dL (6.7-8.2)
[2019-10-07 05:36] LABS: FOLATE 12.69 ng/mL (5.90 - >24.8)
[2019-10-07] MEDS: PANTOPRAZOLE 40 MG TABLET PO SCH (06:31)
[2019-10-07] MEDS: SENNA 8.6 MG TABLET PO SCH (08:07)
[2019-10-07] MEDS: DOCUSATE SODIUM 250 MG CAPSULE PO SCH (08:08)
[2019-10-07] MEDS: polyethylene glycoL 3350 17 GM PACKET PO SCH (08:08)
[2019-10-07] MEDS ORDERED: POTASSIUM CHLORIDE 20 MEQ TABLET PO ONE (08:15)
[2019-10-07] MEDS ORDERED: cefTRIAXone 1 GM in SODIUM CHLORIDE 0.9% MINIBAG 100 ML IV SCH (09:00)
[2019-10-07] MEDS ORDERED: POTASSIUM CHLOR 10 MEQ/100 ML 10 MEQ/100 ML BAG IV ONE (09:15)
--- NOTE | 2019-10-07 11:12 | PROVIDER PROGRESS NOTE ---
Assessment/Plan - Problem List (1) UTI (urinary tract infection) Qualifiers: Urinary tract infection type: site unspecified Hematuria presence: without hematuria Qualified Code(s): N39.0 - Urinary tract infection, site not specified Assessment/Plan: He had a fever overnight and spiked a fever this morning. WBC has been normal. He has an under-treated UTI, since there were 2 bacteria, and one was not sensitive to the Cipro. He is now on Ceftriaxone iv, based on the sensitivities of the last urine cultures from 5 days ago. New urine cultures were sent, await the results. Blood cultures were sent in the ER, and will order another blood culture now with the morning fever. Continue empiric IV ceftriaxone (2) Anemia Assessment/Plan: Hemoglobin dropped from 12 to 7.7 over 2 months. Follow CBC daily. Transfuse if hemoglobin under 7. Evaluate for source of presumed GI blood loss: Heme positive stool was found in the ER. Start po Iron replacement. Will request the Gen surgery consult for EGD when his fever breaks. (3) GI bleed Assessment/Plan: Patient had not noted dark stools. He has been noticing more fatigue and lethargy for weeks. Heme positive stools were found by guaiac test in the ER. Follow CBC daily. Crossmatch of blood has been ordered but no transfusion unless hemoglobin under 7. He will need an EGD and possible colonoscopy. Will await surgical consult for EGD to be requested until after his fever breaks. I told the patient and [id number], at bedside, this plan. (4) VIRGINIE (acute kidney injury) Assessment/Plan: BUN/creat are improving from 37/1.4 to 26/1.2 with gentle saline hydration and stopping HCTZ. Follow BMP daily. (5) Hypokalemia Assessment/Plan: Low K from HCTZ use, probably. Replace po and iv. Follow BMP. (6) Hypertension Assessment/Plan: He was only on HCTZ for blood pressure control. Blood pressure here is running 117-120 systolic, on no BP meds. Hydralazine IV as needed has been ordered to use here if needed (7) Bladder cancer Assessment/Plan: As per Hx. - Current Meds Current Meds: Current Medications Generic Name Dose Route Start Last Admin Trade Name Freq PRN Reason Stop Dose Admin Acetaminophen 650 mg 10/06/19 17:08 10/07/19 08:07 Tylenol PO 650 mg Q4HR PRN Administration Pain or Fever > 38C (100.4F) Cyclobenzaprine HCl 5 mg 10/06/19 19:41 10/06/19 21:37 Flexeril PO 5 mg TID PRN Administration Spasms Docusate Sodium 250 - 500 mg 10/07/19 09:00 10/07/19 08:08 Colace 250mg Capsule PO 250 mg DAILY CORIN Administration Sodium Chloride 1,000 mls @ 0 mls/hr 10/06/19 18:00 10/07/19 10:28 Normal Saline 0.9% IV 100 mls/hr .Q0M CORIN Infusion TKO Ceftriaxone Sodium 1 gm/ 100 mls @ 200 mls/hr 10/07/19 09:00 10/07/19 08:38 Sodium Chloride IV Infused DAILY CORIN Infusion Pantoprazole Sodium 40 mg 10/07/19 07:00 10/07/19 06:31 Protonix PO 40 mg QDAC CORIN Administration Polyethylene Glycol 17 gm 10/07/19 09:00 10/07/19 08:08 Miralax PO 17 gm DAILY CORIN Administration Senna 8.6 - 17.2 mg 10/07/19 09:00 10/07/19 08:07 Senokot PO 8.6 mg DAILY CORIN Administration Sodium Chloride 10 ml 10/06/19 17:08 10/06/19 18:48 Normal Saline Flush 0.9% IVP 10 ml PRN PRN Administration NEEDED PER PROVIDER ORDERS Sodium Chloride 10 ml 10/07/19 01:00 10/07/19 07:45 Normal Saline Flush 0.9% IVP Not Given 0100,0900,1700 CORIN - Lab Result Fish Bone Diagrams: 10/07/19 04:25 10/07/19 04:25 - Additional Planning My Orders: My Active Orders 10/06/19 17:08 Acetaminophen [Tylenol] 650 mg PO Q4HR PRN Ondansetron Inj [Zofran Inj] 4 mg IVP Q6HR PRN Sodium Chloride Flush 0.9% [Normal Saline Flush 0.9%] 10 ml IVP PRN PRN 10/06/19 17:09 Activity Orders [RC] Q2HR IO [RC] IOSHIFT Initiate Bowel Care Protocol [RC] .protocol Initiate Line Care Protocol [RC] QSHIFT Initiate Personal Care Protoco [RC] .protocol Oxygen Therapy [RC] .PRN Vital Signs [RC] 0800,1600,0000 Code Status [OTHERS] Routine Condition of Patient [OTHERS] Routine DVT Prophylaxis [OTHERS] Routine 10/06/19 17:11 Daily Weight [RC] 0600 IV Insert [RC] .ONCE SCDs [RC] QSHIFT 10/06/19 18:00 Sodium Chloride 0.9% [Normal Saline 0.9%] 1,000 ml IV TKO 10/06/19 Dinner Regular Diet [DIET] 10/07/19 01:00 Sodium Chloride Flush 0.9% [Normal Saline Flush 0.9%] 10 ml IVP 0100,0900,1700 10/07/19 08:30 CULTURE, BLOOD #1 [RM] Stat 10/07/19 09:00 Docusate Sodium 250Mg Capsule [Colace 250Mg Capsule] 250 - 500 mg PO DAILY Polyethylene Glycol 3350 [Miralax] 17 gm PO DAILY Senna [Senokot] 8.6 - 17.2 mg PO DAILY cefTRIAXone [Rocephin] 1 gm Sodium Chloride 0.9% Minibag [Normal Saline 0.9% Minibag] 100 ml IV DAILY 10/07/19 15:00 POTASSIUM [CHEM] Timed PT WITH INR [COAG] Routine 10/08/19 05:00 CBC - COMP BLD CT W/AUTO DIFF [HEME] DAILYLAB CMP [COMPREHENSIVE METABOLIC PANEL] [CHEM] DAILYLAB 10/09/19 05:00 CBC - COMP BLD CT W/AUTO DIFF [HEME] DAILYLAB CMP [COMPREHENSIVE METABOLIC PANEL] [CHEM] DAILYLAB Subjective - Subjective Patient Reports: Feeling Better, Resting Comfortably Objective Vital Signs: Vital Signs - 24 hr 10/06/19 10/06/19 10/06/19 13:00 16:16 18:04 Temperature 36.4 C L 37.3 C Heart Rate 50 L 66 Heart Rate [ Brachial] Heart Rate [ 81 Monitoring electrodes] Respiratory 16 14 Rate Blood Pressure 106/60 130/74 Blood Pressure [Left Brachial artery] Blood Pressure 154/62 H [Right Brachial artery] O2 Saturation 96 97 90 L 10/06/19 10/06/19 10/07/19 20:25 23:11 00:20 Temperature 38.0 C H 39.0 C H 38.1 C H Heart Rate 84 Heart Rate [ Brachial] Heart Rate [ 84 Monitoring electrodes] Respiratory 18 18 Rate Blood Pressure Blood Pressure 145/59 H [Left Brachial artery] Blood Pressure [Right Brachial artery] O2 Saturation 96 96 10/07/19 10/07/19 10/07/19 01:00 01:38 03:02 Temperature 38.0 C H 37.6 C H 37.6 C H Heart Rate Heart Rate [ Brachial] Heart Rate [ 73 Monitoring electrodes] Respiratory 17 Rate Blood Pressure Blood Pressure 133/56 H [Left Brachial artery] Blood Pressure [Right Brachial artery] O2 Saturation 97 10/07/19 10/07/19 07:37 10:29 Temperature 38.2 C H 36.9 C Heart Rate Heart Rate [ 80 Brachial] Heart Rate [ Monitoring electrodes] Respiratory 20 Rate Blood Pressure Blood Pressure 118/51 L [Left Brachial artery] Blood Pressure [Right Brachial artery] O2 Saturation 99 Oxygen O2 Source Nasal cannula I&O (Last 24 Hrs): Intake and Output Totals x24h 10/05/19 10/06/19 10/07/19 23:59 23:59 23:59 Intake Total 280 694.167 Output Total 75 Balance 205 694.167 General: Alert, Oriented x3 HEENT: Mucous membr. moist/pink, Other (Pale) Neck: Supple Neuro: Alert, Non Focal Cardiovascular: Regular rate Respiratory: No respiratory distress Abdomen: Normal bowel sounds, Soft Extremities: No edema - Results Results: Laboratory Results WBC 9.0 x10^3/uL (4.8-10.8) 10/07/19 04:25 RBC 2.54 10^6/uL (4.70-6.10) L 10/07/19 04:25 Hgb 7.9 g/dL (14.0-18.0) L 10/07/19 04:25 Hct 24.9 % (42.0-52.0) L 10/07/19 04:25 MCV 98.0 fL (80.0-94.0) H 10/07/19 04:25 MCH 31.1 pg (27.0-31.0) H 10/07/19 04:25 MCHC 31.7 g/dL (32.0-36.0) L 10/07/19 04:25 RDW 12.6 % (12.0-15.0) 10/07/19 04:25 Plt Count 256 10^3/uL (130-450) 10/07/19 04:25 MPV 10.5 fL (7.4-11.4) 10/07/19 04:25 Neut # (Auto) 7.4 10^3/uL (1.5-6.6) H 10/07/19 04:25 Lymph # (Auto) 0.8 10^3/uL (1.5-3.5) L 10/07/19 04:25 [place] # (Auto) 0.7 10^3/uL (0.0-1.0) 10/07/19 04:25 Eos # (Auto) 0.0 10^3/uL (0.0-0.7) 10/07/19 04:25 Baso # (Auto) 0.0 10^3/uL (0.0-0.1) 10/07/19 04:25 Absolute Nucleated RBC 0.00 x10^3/uL 10/07/19 04:25 Nucleated RBC % 0.0 /100WBC 10/07/19 04:25 Sodium 135 mmol/L (135-145) 10/07/19 04:25 Potassium 3.1 mmol/L (3.5-5.0) L 10/07/19 04:25 Chloride 96 mmol/L (101-111) L 10/07/19 04:25 Carbon Dioxide 29 mmol/L (21-32) 10/07/19 04:25 Anion Gap 10.0 (6-13) 10/07/19 04:25 BUN 27 mg/dL (6-20) H 10/07/19 04:25 Creatinine 1.2 mg/dL (0.6-1.2) 10/07/19 04:25 Estimated GFR (MDRD) 57 (>89) L 10/07/19 04:25 Glucose 120 mg/dL (70-100) H 10/07/19 04:25 Lactic Acid 1.4 mmol/L (0.5-2.2) 10/06/19 11:53 Calcium 8.0 mg/dL (8.5-10.3) L 10/07/19 04:25 Magnesium 1.7 mg/dL (1.7-2.8) 10/07/19 04:25 Iron 15 ug/dL (45-182) L 10/07/19 04:25 TIBC 148 ug/dL (250-450) L 10/07/19 04:25 % Saturation 10 % (20-50) L 10/07/19 04:25 Transferrin 106 mg/dL (180-329) L 10/07/19 04:25 Total Bilirubin 0.5 mg/dL (0.2-1.0) 10/07/19 04:25 AST 45 IU/L (10-42) H 10/07/19 04:25 ALT 40 IU/L (10-60) 10/07/19 04:25 Alkaline Phosphatase 73 IU/L (42-121) 10/07/19 04:25 Total Protein 6.2 g/dL (6.7-8.2) L 10/07/19 04:25 Albumin 2.2 g/dL (3.2-5.5) L 10/07/19 04:25 Globulin 4.0 g/dL (2.1-4.2) 10/07/19 04:25 Albumin/Globulin Ratio 0.6 (1.0-2.2) L 10/07/19 04:25 Lipase 35 U/L (22-51) 10/06/19 11:53 Vitamin B12 589 pg/mL (180-914) 10/07/19 04:25 Folate 12.69 ng/mL (5.90 - >24.8) 10/07/19 04:25 Urine Color YELLOW 10/06/19 14:28 Urine Clarity CLOUDY (CLEAR) 10/06/19 14:28 Urine pH 5.0 PH (5.0-7.5) 10/06/19 14:28 Ur Specific Dowell >=1.030 (1.002-1.030) H 10/06/19 14:28 Urine Protein 100 mg/dL (NEGATIVE) H 10/06/19 14:28 Urine Glucose (UA) NEGATIVE mg/dL (NEGATIVE) 10/06/19 14:28 Urine Ketones NEGATIVE mg/dL (NEGATIVE) 10/06/19 14:28 Urine Occult Blood SMALL (NEGATIVE) H 10/06/19 14:28 Urine Nitrite NEGATIVE (NEGATIVE) 10/06/19 14:28 Urine Bilirubin SMALL (NEGATIVE) H 10/06/19 14:28 Urine Urobilinogen 1 (NORMAL) E.U./dL (NORMAL) 10/06/19 14:28 Ur Leukocyte Esterase SMALL (NEGATIVE) H 10/06/19 14:28 Urine RBC 0-5 /HPF (0-5) 10/06/19 14:28 Urine WBC >25 /HPF (0-3) H 10/06/19 14:28 Ur Squamous Epith Cells RARE Squamous (<= Few) 10/06/19 14:28 Amorphous Sediment Few /LPF 10/06/19 14:28 Urine Bacteria Few /HPF (None Seen) 10/06/19 14:28 Urine Casts 0-2 Hyaline Casts /LPF 10/06/19 14:28 Ur Microscopic Review INDICATED 10/06/19 14:28 Urine Culture Comments INDICATED 10/06/19 14:28 Blood Type A POSITIVE 10/06/19 16:39 Blood Type Recheck A POSITIVE 10/06/19 11:53 Antibody Screen NEGATIVE 10/06/19 16:39
[2019-10-07] MEDS: FERROUS GLUCONATE 324 MG TABLET PO SCH (12:00)
[2019-10-07 15:18] LABS: INR 1.8 (0.8-1.2); PT - PROTHROMBIN TIME 19.6 secs (9.9-12.6)
[2019-10-07] MEDS ORDERED: IBUPROFEN 600 MG TABLET PO PRN ×2 (17:18→17:37)
[2019-10-07] MEDS ORDERED: IBUPROFEN 400 MG TABLET PO PRN (17:44)
[2019-10-08] MEDS: SODIUM CHLORIDE FLUSH 0.9% 10 ML SYRINGE IVP SCH ×3 (00:59→17:15)
[2019-10-08 04:56] LABS: BASOPHILS % (AUTO) 0.3 %; EOSINOPHILS % (AUTO) 0.1 %; HGB - HEMOGLOBIN 9.1 g/dL (14.0-18.0); LYMPHOCYTES # (AUTO) 1.2 10^3/uL (1.5-3.5); LYMPHOCYTES % (AUTO) 9.2 %; MEAN CORPUSCULAR HEMOGLOBIN 31.4 pg (27.0-31.0); MEAN CORPUSCULAR HGB CONC 31.9 g/dL (32.0-36.0); MEAN CORPUSCULAR VOLUME 98.3 fL (80.0-94.0); MEAN PLATELET VOLUME 10.5 fL (7.4-11.4); MONOCYTES # (AUTO) 0.7 10^3/uL (0.0-1.0); MONOCYTES % (AUTO) 5.4 %; NEUTROPHILS # (AUTO) 11.2 10^3/uL (1.5-6.6); NEUTROPHILS % (AUTO) 84.4 %; PLT - PLATELET COUNT 287 10^3/uL (130-450); RED CELL DISTRIBUTION WIDTH 12.6 % (12.0-15.0); WHITE BLOOD COUNT 13.2 x10^3/uL (4.8-10.8)
[2019-10-08 05:09] LABS: ALBUMIN 2.3 g/dL (3.2-5.5); ALBUMIN/GLOBULIN RATIO 0.5 (1.0-2.2); BILIRUBIN,TOTAL 0.4 mg/dL (0.2-1.0); CALCIUM 8.7 mg/dL (8.5-10.3); TOTAL PROTEIN 7.1 g/dL (6.7-8.2)
[2019-10-08] MEDS: PANTOPRAZOLE 40 MG TABLET PO SCH (06:19)
[2019-10-08] MEDS: FERROUS GLUCONATE 324 MG TABLET PO SCH (08:19)
[2019-10-08] MEDS: SENNA 8.6 MG TABLET PO SCH (08:19)
[2019-10-08] MEDS: cefTRIAXone 2 GM in SODIUM CHLORIDE 0.9% MINIBAG 100 ML IV SCH (08:20)
[2019-10-08] MEDS: DOCUSATE SODIUM 250 MG CAPSULE PO SCH (08:20)
[2019-10-08] MEDS: SODIUM CHLORIDE 0.9% 1,000 ML IV SCH (08:56)
--- NOTE | 2019-10-08 10:16 | PHARMACY PROGRESS NOTE ---
- Best Possible Medication History Admit Date and Time: 10/06/19 4419 Processed by: Pharmacy Medication History completed: Yes Patient Interview: Completed Secondary Source(s): Pharmacy records (pharmacy unable to provide confirmation of hydrochlorothiazide) As the person ultimately responsible for medication therapy, providers are able to order a medication from an existing home medication list in [facility] via the "Reconcile Routine" prior to Confirmation of that medication by applications support specialist. Such practice is discouraged except when the physician, in their clinical judgment, deems that a medical need exists for a medication without regard to previous use.
[2019-10-08] MEDS: polyethylene glycoL 3350 17 GM PACKET PO SCH (10:52)
--- NOTE | 2019-10-08 15:02 | PROVIDER PROGRESS NOTE ---
Assessment/Plan - Problem List (1) UTI (urinary tract infection) Qualifiers: Urinary tract infection type: site unspecified Hematuria presence: without hematuria Qualified Code(s): N39.0 - Urinary tract infection, site not specified Assessment/Plan: The Rocephin dose was increased from 1 g to 2 g daily, starting today, because of continued fevers for the past 48 hours. As of midnight, there is been no fever today. Await urine cultures. Await blood cultures which are all negative to date (2) Anemia Assessment/Plan: GI blood loss anemia is suspected to be the reason. He has been started on oral iron. Will request general surgery for EGD, once his fever has broken. (3) GI bleed Assessment/Plan: As above in #3 (4) [place]IR[place] (acute kidney injury) Assessment/Plan: Improving with IV hydration (5) Hypertension Assessment/Plan: Stable blood pressures on current management (6) Bladder cancer Assessment/Plan: As per history, followed by oncology (7) Hypokalemia Assessment/Plan: Resolved - Current Meds Current Meds: Current Medications Generic Name Dose Route Start Last Admin Trade Name Freq PRN Reason Stop Dose Admin Acetaminophen 650 mg 10/06/19 17:08 10/07/19 17:07 Tylenol PO 650 mg Q4HR PRN Administration Pain or Fever > 38C (100.4F) Cyclobenzaprine HCl 5 mg 10/06/19 19:41 10/06/19 21:37 Flexeril PO 5 mg TID PRN Administration Spasms Docusate Sodium 250 - 500 mg 10/07/19 09:00 10/08/19 08:20 Colace 250mg Capsule PO 250 mg DAILY CORIN Administration Ferrous Gluconate 324 mg 10/07/19 12:00 10/08/19 08:19 Fergon PO 324 mg DAILYWM CORIN Administration Sodium Chloride 1,000 mls @ 0 mls/hr 10/06/19 18:00 10/08/19 08:56 Normal Saline 0.9% IV 25 mls/hr .Q0M CORIN Administration TKO Ceftriaxone Sodium 2 gm/ 100 mls @ 200 mls/hr 10/08/19 09:00 10/08/19 08:55 Sodium Chloride IV Infused DAILY CORIN Infusion Pantoprazole Sodium 40 mg 10/07/19 07:00 12/27/19 06:19 Protonix PO 40 mg QDAC CORIN Administration Polyethylene Glycol 17 gm 10/07/19 09:00 10/08/19 10:52 Miralax PO 17 gm DAILY CORIN Administration Senna 8.6 - 17.2 mg 10/07/19 09:00 10/08/19 08:19 Senokot PO 17.2 mg DAILY CORIN Administration Sodium Chloride 10 ml 10/06/19 17:08 10/06/19 18:48 Normal Saline Flush 0.9% IVP 10 ml PRN PRN Administration NEEDED PER PROVIDER ORDERS Sodium Chloride 10 ml 10/07/19 01:00 10/08/19 10:52 Normal Saline Flush 0.9% IVP Not Given 0100,0900,1700 CORIN - Lab Result Fish Bone Diagrams: 10/08/19 04:20 10/08/19 04:20 - Additional Planning My Orders: My Active Orders 10/09/19 05:00 CBC - COMP BLD CT W/AUTO DIFF [HEME] DAILYLAB CMP [COMPREHENSIVE METABOLIC PANEL] [CHEM] DAILYLAB Subjective - Subjective Patient Reports: Other (Has shaking chills. No BM since here, but usually has a BM every 2 days, and also has not eaten much for 3-5 days.) Objective Vital Signs: Vital Signs - 24 hr 10/07/19 10/07/19 10/07/19 15:51 17:08 18:25 Temperature 38.6 C H 39.1 C H 37.3 C Heart Rate [ 84 Brachial] Respiratory 20 Rate Blood Pressure 148/65 H [Left Brachial artery] Blood Pressure [Right Brachial artery] O2 Saturation 95 10/07/19 10/07/19 10/08/19 19:37 21:01 00:00 Temperature 36.8 C 36.4 C L 36.6 C Heart Rate [ 65 79 Brachial] Respiratory 20 18 Rate Blood Pressure 105/56 L 134/71 H [Left Brachial artery] Blood Pressure [Right Brachial artery] O2 Saturation 94 92 10/08/19 10/08/19 08:00 11:30 Temperature 36.7 C 36.8 C Heart Rate [ 91 79 Brachial] Respiratory 18 18 Rate Blood Pressure 140/58 H [Left Brachial artery] Blood Pressure 132/61 H [Right Brachial artery] O2 Saturation 94 94 Oxygen O2 Source Room air I&O (Last 24 Hrs): Intake and Output Totals x24h 10/06/19 10/07/19 10/08/19 23:59 23:59 23:59 Intake Total 280 6049.919 7213.833 Output Total 75 75 Balance 205 4653.710 9793.833 General: Alert, Oriented x3, Other (Pale) HEENT: Mucous membr. moist/pink Neck: Supple Neuro: Alert Cardiovascular: Regular rate, No murmurs Respiratory: No respiratory distress Abdomen: Normal bowel sounds, Soft Extremities: No edema - Results Results: Laboratory Results WBC 13.2 x10^3/uL (4.8-10.8) H 10/08/19 04:20 RBC 2.90 10^6/uL (4.70-6.10) L 10/08/19 04:20 Hgb 9.1 g/dL (14.0-18.0) L 10/08/19 04:20 Hct 28.5 % (42.0-52.0) L 10/08/19 04:20 MCV 98.3 fL (80.0-94.0) H 10/08/19 04:20 MCH 31.4 pg (27.0-31.0) H 10/08/19 04:20 MCHC 31.9 g/dL (32.0-36.0) L 10/08/19 04:20 RDW 12.6 % (12.0-15.0) 10/08/19 04:20 Plt Count 287 10^3/uL (130-450) 10/08/19 04:20 MPV 10.5 fL (7.4-11.4) 10/08/19 04:20 Neut # (Auto) 11.2 10^3/uL (1.5-6.6) H 10/08/19 04:20 Lymph # (Auto) 1.2 10^3/uL (1.5-3.5) L 10/08/19 04:20 [place] # (Auto) 0.7 10^3/uL (0.0-1.0) 10/08/19 04:20 Eos # (Auto) 0.0 10^3/uL (0.0-0.7) 10/08/19 04:20 Baso # (Auto) 0.0 10^3/uL (0.0-0.1) 10/08/19 04:20 Absolute Nucleated RBC 0.00 x10^3/uL 10/08/19 04:20 Nucleated RBC % 0.0 /100WBC 10/08/19 04:20 PT 19.6 secs (9.9-12.6) H 10/07/19 15:00 INR 1.8 (0.8-1.2) H 10/07/19 15:00 Sodium 139 mmol/L (135-145) 10/08/19 04:20 Potassium 3.6 mmol/L (3.5-5.0) 10/08/19 04:20 Chloride 98 mmol/L (101-111) L 10/08/19 04:20 Carbon Dioxide 29 mmol/L (21-32) 10/08/19 04:20 Anion Gap 12.0 (6-13) 10/08/19 04:20 BUN 26 mg/dL (6-20) H 10/08/19 04:20 Creatinine 1.0 mg/dL (0.6-1.2) 10/08/19 04:20 Estimated GFR (MDRD) 71 (>89) L 10/08/19 04:20 Glucose 134 mg/dL (70-100) H 10/08/19 04:20 Lactic Acid 1.4 mmol/L (0.5-2.2) 10/06/19 11:53 Calcium 8.7 mg/dL (8.5-10.3) 10/08/19 04:20 Magnesium 1.7 mg/dL (1.7-2.8) 10/07/19 04:25 Iron 15 ug/dL (45-182) L 10/07/19 04:25 TIBC 148 ug/dL (250-450) L 10/07/19 04:25 % Saturation 10 % (20-50) L 10/07/19 04:25 Transferrin 106 mg/dL (180-329) L 10/07/19 04:25 Total Bilirubin 0.4 mg/dL (0.2-1.0) 10/08/19 04:20 AST 56 IU/L (10-42) H 10/08/19 04:20 ALT 48 IU/L (10-60) 10/08/19 04:20 Alkaline Phosphatase 98 IU/L (42-121) 10/08/19 04:20 Total Protein 7.1 g/dL (6.7-8.2) 10/08/19 04:20 Albumin 2.3 g/dL (3.2-5.5) L 10/08/19 04:20 Globulin 4.8 g/dL (2.1-4.2) H 10/08/19 04:20 Albumin/Globulin Ratio 0.5 (1.0-2.2) L 10/08/19 04:20 Lipase 35 U/L (22-51) 10/06/19 11:53 Vitamin B12 589 pg/mL (180-914) 10/07/19 04:25 Folate 12.69 ng/mL (5.90 - >24.8) 10/07/19 04:25 Urine Color YELLOW 10/06/19 14:28 Urine Clarity CLOUDY (CLEAR) 10/06/19 14:28 Urine pH 5.0 PH (5.0-7.5) 10/06/19 14:28 Ur Specific [place] >=1.030 (1.002-1.030) H 10/06/19 14:28 Urine Protein 100 mg/dL (NEGATIVE) H 10/06/19 14:28 Urine Glucose (UA) NEGATIVE mg/dL (NEGATIVE) 10/06/19 14:28 Urine Ketones NEGATIVE mg/dL (NEGATIVE) 10/06/19 14:28 Urine Occult Blood SMALL (NEGATIVE) H 10/06/19 14:28 Urine Nitrite NEGATIVE (NEGATIVE) 10/06/19 14:28 Urine Bilirubin SMALL (NEGATIVE) H 10/06/19 14:28 Urine Urobilinogen 1 (NORMAL) E.U./dL (NORMAL) 10/06/19 14:28 Ur Leukocyte Esterase SMALL (NEGATIVE) H 10/06/19 14:28 Urine RBC 0-5 /HPF (0-5) 10/06/19 14:28 Urine WBC >25 /HPF (0-3) H 10/06/19 14:28 Ur Squamous Epith Cells RARE Squamous (<= Few) 10/06/19 14:28 Amorphous Sediment Few /LPF 10/06/19 14:28 Urine Bacteria Few /HPF (None Seen) 10/06/19 14:28 Urine Casts 0-2 Hyaline Casts /LPF 10/06/19 14:28 Ur Microscopic Review INDICATED 10/06/19 14:28 Urine Culture Comments INDICATED 10/06/19 14:28 Blood Type A POSITIVE 10/06/19 16:39 Blood Type Recheck A POSITIVE 10/06/19 11:53 Antibody Screen NEGATIVE 10/06/19 16:39
[2019-10-09] MEDS: ACETAMINOPHEN 325 MG TABLET PO PRN ×2 (01:12→17:23)
[2019-10-09] MEDS: SODIUM CHLORIDE FLUSH 0.9% 10 ML SYRINGE IVP SCH ×3 (01:12→17:29)
[2019-10-09 06:09] LABS: BASOPHILS # (AUTO) 0.1 10^3/uL (0.0-0.1); BASOPHILS % (AUTO) 0.6 %; EOSINOPHILS % (AUTO) 0.1 %; HGB - HEMOGLOBIN 7.9 g/dL (14.0-18.0); LYMPHOCYTES # (AUTO) 0.7 10^3/uL (1.5-3.5); LYMPHOCYTES % (AUTO) 8.1 %; MEAN CORPUSCULAR HEMOGLOBIN 31.1 pg (27.0-31.0); MEAN CORPUSCULAR VOLUME 97.2 fL (80.0-94.0); MEAN PLATELET VOLUME 10.2 fL (7.4-11.4); MONOCYTES # (AUTO) 0.7 10^3/uL (0.0-1.0); MONOCYTES % (AUTO) 7.4 %; NEUTROPHILS # (AUTO) 7.4 10^3/uL (1.5-6.6); NEUTROPHILS % (AUTO) 83.2 %; PLT - PLATELET COUNT 239 10^3/uL (130-450); RED BLOOD COUNT 2.54 10^6/uL (4.70-6.10); RED CELL DISTRIBUTION WIDTH 12.9 % (12.0-15.0); WHITE BLOOD COUNT 8.9 x10^3/uL (4.8-10.8)
[2019-10-09 06:22] LABS: ALBUMIN 1.9 g/dL (3.2-5.5); ALBUMIN/GLOBULIN RATIO 0.5 (1.0-2.2); BILIRUBIN,TOTAL 0.4 mg/dL (0.2-1.0); CALCIUM 7.9 mg/dL (8.5-10.3); TOTAL PROTEIN 5.8 g/dL (6.7-8.2)
[2019-10-09] MEDS: PANTOPRAZOLE 40 MG TABLET PO SCH ×2 (06:41→21:05)
[2019-10-09] MEDS: DOCUSATE SODIUM 250 MG CAPSULE PO SCH (08:06)
[2019-10-09] MEDS: FERROUS GLUCONATE 324 MG TABLET PO SCH (08:06)
[2019-10-09] MEDS: SENNA 8.6 MG TABLET PO SCH (08:06)
[2019-10-09] MEDS: polyethylene glycoL 3350 17 GM PACKET PO SCH (08:07)
[2019-10-09] MEDS: cefTRIAXone 2 GM in SODIUM CHLORIDE 0.9% MINIBAG 100 ML IV SCH (08:12)
[2019-10-09] MEDS ORDERED: POTASSIUM CHLORIDE 20 MEQ TABLET PO ONE (11:33)
--- NOTE | 2019-10-09 11:35 | PROVIDER PROGRESS NOTE ---
Assessment/Plan - Problem List (1) UTI (urinary tract infection) Qualifiers: Urinary tract infection type: site unspecified Hematuria presence: without hematuria Qualified Code(s): N39.0 - Urinary tract infection, site not specified Assessment/Plan: The urine culture from 2 days ago remains negative. Several blood cultures from this admission remain negative. His antibiotic dose was increased when he had persistent fevers over the first 2 days. There was still a fever at midnight. His antibiotics are therefore being based on the last urine cultures that grew from his ER visit 7 days ago: Ceftriaxone IV to which the Enterococcus and Aerococcus were sensitive. The white blood count followed the persistent fever, went up from 7.4 to 9 then 13.2 but today has improved to 8.9. Will obtain US imaging of the renal system. A 21-day (minimum) course of treatment is planned, given his prostate Dx. (2) Anemia Qualifiers: Anemia type: iron deficiency Assessment/Plan: The general surgeon consulted on the patient today. He was able to obtain a hi story that the patient had taken one & a half bottles of ibuprofen over the past weeks to treat back pain. There was no Ibuprofen listed on his med list that was reconciled by our Pharmacy. He has been started on empiric oral iron replacement. Hemoglobin is hovering at 7.7-7.9, despite 4 L positive hemodilution with fluid replacement. There was one hemoglobin up at 9.2, this appears to be a lab error since he did not get a transfusion this admission. The patient is getting empiric treatment for peptic ulcer disease since admission, by virtue of being on meds for ulcer prophylaxis. Check Hgb this evening to give a transfusion if needed before upper endoscopy, per the surgeon's request. Patient is scheduled for EGD tomorrow morning. (3) GI bleed Assessment/Plan: As above in #2 (4) Elevated INR Assessment/Plan: This may be an additional contributing factor for a GI bleed. He was on no Coumadin, therefore this suggests liver synthesis is abnormal. He has normal LFTs, however he did admit to drinking 1-2 alcohoic drinks per day. Will recheck INR in am and correct if needed before EGD. (5) VIR[place]IE (acute kidney injury) Assessment/Plan: Slow improvement daily in BUN/creat with current hydration and management of UTI. Follow BMP daily. (6) Hypertension Assessment/Plan: He was only on HCTZ at home for blood pressure treatment. Stable BP on current management (7) Bladder cancer Assessment/Plan: Follow-up and management per oncology (8) Hypokalemia Assessment/Plan: Replace with K. Follow BMP daily. - Current Meds Current Meds: Current Medications Generic Name Dose Route Start Last Admin Trade Name Freq PRN Reason Stop Dose Admin Acetaminophen 650 mg 10/06/19 17:08 10/09/19 01:12 Tylenol PO 650 mg Q4HR PRN Administration Pain or Fever > 38C (100.4F) Cyclobenzaprine HCl 5 mg 10/06/19 19:41 10/06/19 21:37 Flexeril PO 5 mg TID PRN Administration Spasms Docusate Sodium 250 - 500 mg 10/07/19 09:00 10/09/19 08:06 Colace 250mg Capsule PO 250 mg DAILY CORIN Administration Ferrous Gluconate 324 mg 10/07/19 12:00 10/09/19 08:06 Fergon PO 324 mg DAILYWM CORIN Administration Sodium Chloride 1,000 mls @ 0 mls/hr 10/06/19 18:00 10/08/19 08:56 Normal Saline 0.9% IV 25 mls/hr .Q0M CORIN Administration TKO Ceftriaxone Sodium 2 gm/ 100 mls @ 200 mls/hr 10/08/19 09:00 10/09/19 08:42 Sodium Chloride IV Infused DAILY CORIN Infusion Pantoprazole Sodium 40 mg 10/07/19 07:00 10/09/19 06:41 Protonix PO 40 mg QDAC CORIN Administration Polyethylene Glycol 17 gm 10/07/19 09:00 10/09/19 08:07 Miralax PO 17 gm DAILY CORIN Administration Senna 8.6 - 17.2 mg 10/07/19 09:00 10/09/19 08:06 Senokot PO 8.6 mg DAILY CORIN Administration Sodium Chloride 10 ml 10/06/19 17:08 10/06/19 18:48 Normal Saline Flush 0.9% IVP 10 ml PRN PRN Administration NEEDED PER PROVIDER ORDERS Sodium Chloride 10 ml 10/07/19 01:00 10/09/19 07:52 Normal Saline Flush 0.9% IVP Not Given 0100,0900,1700 CORIN - Lab Result Fish Bone Diagrams: 10/09/19 16:45 10/09/19 05:55 - Additional Planning My Orders: My Active Orders 10/09/19 Consult [General Surgery Consult] [CONS] Routine 10/09/19 11:33 Potassium Chloride [K-Dur] 20 meq PO ONCE ONE 10/10/19 05:00 BMP - BASIC METABOLIC PANEL [CHEM] DAILYLAB CBC - COMP BLD CT W/AUTO DIFF [HEME] DAILYLAB PT WITH INR [COAG] DAILYLAB 10/11/19 05:00 BMP - BASIC METABOLIC PANEL [CHEM] DAILYLAB CBC - COMP BLD CT W/AUTO DIFF [HEME] DAILYLAB 10/12/19 05:00 BMP - BASIC METABOLIC PANEL [CHEM] DAILYLAB CBC - COMP BLD CT W/AUTO DIFF [HEME] DAILYLAB Subjective - Subjective Patient Reports: Feeling Better, Resting Comfortably Nursing Reports: Other (Had a fever spike at midnight to 38.7) Objective Vital Signs: Vital Signs - 24 hr 10/08/19 10/09/19 10/09/19 15:30 00:00 04:17 Temperature 37.3 C 38.7 C H 37.0 C Heart Rate [ 82 87 Brachial] Respiratory 18 18 Rate Blood Pressure 139/75 H [Left Brachial artery] Blood Pressure 129/61 [Right Brachial artery] O2 Saturation 95 92 10/09/19 07:55 Temperature 37.3 C Heart Rate [ 79 Brachial] Respiratory 18 Rate Blood Pressure [Left Brachial artery] Blood Pressure 134/53 H [Right Brachial artery] O2 Saturation 92 Oxygen O2 Source Room air I&O (Last 24 Hrs): Intake and Output Totals x24h 10/07/19 10/08/19 10/09/19 23:59 23:59 23:59 Intake Total 8033.340 4624.833 970 Output Total 75 Balance 6158.613 5189.833 970 General: Alert, Oriented x3 HEENT: Mucous membr. moist/pink Neck: Supple, No JVD Neuro: Alert, Non Focal Cardiovascular: Regular rate Respiratory: No respiratory distress Abdomen: Soft Extremities: No edema - Results Results: Laboratory Results WBC 8.9 x10^3/uL (4.8-10.8) 10/09/19 05:55 RBC 2.54 10^6/uL (4.70-6.10) L 10/09/19 05:55 Hgb 7.9 g/dL (14.0-18.0) L 10/09/19 05:55 Hct 24.7 % (42.0-52.0) L 10/09/19 05:55 MCV 97.2 fL (80.0-94.0) H 10/09/19 05:55 MCH 31.1 pg (27.0-31.0) H 10/09/19 05:55 MCHC 32.0 g/dL (32.0-36.0) 10/09/19 05:55 RDW 12.9 % (12.0-15.0) 10/09/19 05:55 Plt Count 239 10^3/uL (130-450) 10/09/19 05:55 MPV 10.2 fL (7.4-11.4) 10/09/19 05:55 Neut # (Auto) 7.4 10^3/uL (1.5-6.6) H 10/09/19 05:55 Lymph # (Auto) 0.7 10^3/uL (1.5-3.5) L 10/09/19 05:55 [place] # (Auto) 0.7 10^3/uL (0.0-1.0) 10/09/19 05:55 Eos # (Auto) 0.0 10^3/uL (0.0-0.7) 10/09/19 05:55 Baso # (Auto) 0.1 10^3/uL (0.0-0.1) 10/09/19 05:55 Absolute Nucleated RBC 0.00 x10^3/uL 10/09/19 05:55 Nucleated RBC % 0.0 /100WBC 10/09/19 05:55 PT 19.6 secs (9.9-12.6) H 10/07/19 15:00 INR 1.8 (0.8-1.2) H 10/07/19 15:00 Sodium 135 mmol/L (135-145) 10/09/19 05:55 Potassium 3.4 mmol/L (3.5-5.0) L 10/09/19 05:55 Chloride 98 mmol/L (101-111) L 10/09/19 05:55 Carbon Dioxide 29 mmol/L (21-32) 10/09/19 05:55 Anion Gap 8.0 (6-13) 10/09/19 05:55 BUN 23 mg/dL (6-20) H 10/09/19 05:55 Creatinine 1.0 mg/dL (0.6-1.2) 10/09/19 05:55 Estimated GFR (MDRD) 71 (>89) L 10/09/19 05:55 Glucose 124 mg/dL (70-100) H 10/09/19 05:55 Lactic Acid 1.4 mmol/L (0.5-2.2) 10/06/19 11:53 Calcium 7.9 mg/dL (8.5-10.3) L 10/09/19 05:55 Magnesium 1.7 mg/dL (1.7-2.8) 10/07/19 04:25 Iron 15 ug/dL (45-182) L 10/07/19 04:25 TIBC 148 ug/dL (250-450) L 10/07/19 04:25 % Saturation 10 % (20-50) L 10/07/19 04:25 Transferrin 106 mg/dL (180-329) L 10/07/19 04:25 Total Bilirubin 0.4 mg/dL (0.2-1.0) 10/09/19 05:55 AST 39 IU/L (10-42) 10/09/19 05:55 ALT 35 IU/L (10-60) 10/09/19 05:55 Alkaline Phosphatase 75 IU/L (42-121) 10/09/19 05:55 Total Protein 5.8 g/dL (6.7-8.2) L 10/09/19 05:55 Albumin 1.9 g/dL (3.2-5.5) L 10/09/19 05:55 Globulin 3.9 g/dL (2.1-4.2) 10/09/19 05:55 Albumin/Globulin Ratio 0.5 (1.0-2.2) L 10/09/19 05:55 Lipase 35 U/L (22-51) 10/06/19 11:53 Vitamin B12 589 pg/mL (180-914) 10/07/19 04:25 Folate 12.69 ng/mL (5.90 - >24.8) 10/07/19 04:25 Urine Color YELLOW 12/25/19 14:28 Urine Clarity CLOUDY (CLEAR) 10/06/19 14:28 Urine pH 5.0 PH (5.0-7.5) 10/06/19 14:28 Ur Specific [place] >=1.030 (1.002-1.030) H 10/06/19 14:28 Urine Protein 100 mg/dL (NEGATIVE) H 10/06/19 14:28 Urine Glucose (UA) NEGATIVE mg/dL (NEGATIVE) 10/06/19 14:28 Urine Ketones NEGATIVE mg/dL (NEGATIVE) 10/06/19 14:28 Urine Occult Blood SMALL (NEGATIVE) H 10/06/19 14:28 Urine Nitrite NEGATIVE (NEGATIVE) 10/06/19 14:28 Urine Bilirubin SMALL (NEGATIVE) H 10/06/19 14:28 Urine Urobilinogen 1 (NORMAL) E.U./dL (NORMAL) 10/06/19 14:28 Ur Leukocyte Esterase SMALL (NEGATIVE) H 10/06/19 14:28 Urine RBC 0-5 /HPF (0-5) 10/06/19 14:28 Urine WBC >25 /HPF (0-3) H 10/06/19 14:28 Ur Squamous Epith Cells RARE Squamous (<= Few) 10/06/19 14:28 Amorphous Sediment Few /LPF 10/06/19 14:28 Urine Bacteria Few /HPF (None Seen) 10/06/19 14:28 Urine Casts 0-2 Hyaline Casts /LPF 10/06/19 14:28 Ur Microscopic Review INDICATED 10/06/19 14:28 Urine Culture Comments INDICATED 10/06/19 14:28 Blood Type A POSITIVE 10/06/19 16:39 Blood Type Recheck A POSITIVE 10/06/19 11:53 Antibody Screen NEGATIVE 10/06/19 16:39
--- NOTE | 2019-10-09 15:24 | CONSULTATION NOTE ---
Referring Provider Consult Date: 10/09/19 Chief Complaint - Chief Complaint Chief Complaint: Anemia / UGI source likely History of Present Illness - Admitted From Admitted From:: ED - History Obtained From Records Reviewed: Yes History obtained from: Chart / patient / Hospitalist / Family Exam Limitations: None - History of Present Illness HPI Comment/Other: Patient is an 89 y/o male who presented to the ED with complain of not feeling well for the past 3-4 weeks. He was initially seen in the ED in the beginning of August for removal of a khoury catheter. He returned 1 week ago because he was still not feeling well. He was found to have a UTI and given a 5-day course of Cipro. He was also advised to return if there was no improvement thus leading to his return. On further review it was found that 2 bacteria grew from the urine culture E. faecalis and Aerococcus urinae. Aerococcus was not sensitive to Cipro. He was also found to have a hemoglobin of 7.7. On August 10 2019, it was 12.6. He denies dark tarry stools, coffee ground emesis or any traumatic event from which he would have bled profusely. He last had a colonoscopy 8-9 yrs ago, during which a polyp was found. He denied chest pain, dyspnea, abd pain, n/v/d. He reports back spasm. He has been diagnosed with bladder cancer and is schedule to follow up with [facility] for further treatment. History - Past Medical History Cardiovascular: reports: Hypertension Neuro: reports: None GI: reports: GERD : reports: Other (Prostate cancer, Bladder cancer) Musculoskeletal: reports: Chronic back pain, Other MRSA Hx?: No Other Past Medical History: bladder ca - Past Surgical History General: reports: Colonoscopy, Other Ortho: reports: Arthroscopic surgery, Other - Family & Social History Family History: Father: Cancer (lung and brain) Living arrangement: At home Social History Notes: He does not smoke or use illicit substances. He has 1-2 drinks daily - POLST Patient has POLST: No POLST Status: Full Code Meds/Allgy - Home Medications Home Medications: Ambulatory Orders Medication Instructions Recorded Confirmed Hydrochlorothiazide 12.5 mg PO DAILY 12/14/17 10/08/19 Omeprazole 20 mg PO DAILY 12/14/17 10/08/19 - Allergies Allergies/Adverse Reactions: Allergies Allergy/AdvReac Type Severity Reaction Status Date / Time No Known Drug Allergies Allergy Verified 09/30/19 13:29 Review of Systems - Constitutional Constitutional: reports: Fatigue, Weakness - Gastrointestinal Gastrointestinal: reports: Black stools - Musculoskeletal Musculoskeletal: reports: Back pain, Other (Admits to taking quite abit of Ibuprofen over the past 10 days for his back pain) Exam - Vital Signs Reviewed Vital Signs: Yes Vital Signs: Vital Signs x48h Temp Pulse Resp BP Pulse Ox 10/09/19 07:55 37.3 C 79 18 134/53 H 92 - Physical Exam General Appearance: positive: No acute distress, Alert, Other (Daughter and daughter in law present) Eyes Bilateral: positive: Normal inspection Neck: positive: Nml inspection Respiratory: positive: Chest non-tender, No respiratory distress, Breath sounds nml Cardiovascular: positive: Regular rate & rhythm, Other (III/ [place]) Abdomen: positive: Non-tender Conclusion and Plan - Lab Results Microbiology Results 10/06/19 14:28 Urine,Clean Catch Urine Culture - Final NO AEROBIC GROWTH AT 24 HOURS Laboratory Results 10/09/19 05:55: Sodium 135, Potassium 3.4 L, Chloride 98 L, Carbon Dioxide 29, Anion Gap 8.0, BUN 23 H, Creatinine 1.0, Estimated GFR (MDRD) 71 L, Glucose 124 H, Calcium 7.9 L, Total Bilirubin 0.4, AST 39, ALT 35, Alkaline Phosphatase 75, Total Protein 5.8 L, Albumin 1.9 L, Globulin 3.9, Albumin/Globulin Ratio 0.5 L 10/09/19 05:55: WBC 8.9, RBC 2.54 L, Hgb 7.9 L, Hct 24.7 L, MCV 97.2 H, MCH 31.1 H, MCHC 32.0, RDW 12.9, Plt Count 239, MPV 10.2, Neut # (Auto) 7.4 H, Lymph # (Auto) 0.7 L, [place] # (Auto) 0.7, Eos # (Auto) 0.0, Baso # (Auto) 0.1, Absolute Nucleated RBC 0.00, Nucleated RBC % 0.0 10/08/19 04:20: Sodium 139, Potassium 3.6, Chloride 98 L, Carbon Dioxide 29, Anion Gap 12.0, BUN 26 H, Creatinine 1.0, Estimated GFR (MDRD) 71 L, Glucose 134 H, Calcium 8.7, Total Bilirubin 0.4, AST 56 H, ALT 48, Alkaline Phosphatase 98, Total Protein 7.1, Albumin 2.3 L, Globulin 4.8 H, Albumin/Globulin Ratio 0.5 L 10/08/19 04:20: WBC 13.2 H, RBC 2.90 L, Hgb 9.1 L, Hct 28.5 L, MCV 98.3 H, MCH 31.4 H, MCHC 31.9 L, RDW 12.6, Plt Count 287, MPV 10.5, Neut # (Auto) 11.2 H, Lymph # (Auto) 1.2 L, [place] # (Auto) 0.7, Eos # (Auto) 0.0, Baso # (Auto) 0.0, Absolute Nucleated RBC 0.00, Nucleated RBC % 0.0 10/07/19 15:00: Potassium 3.7 - Diagnosis Diagnosis: Anemia / melena UGI bleed presumed - Plan Plan: Monitor H&H and transfuse per protocol EGD AM
[2019-10-09 16:51] LABS: HGB - HEMOGLOBIN 8.5 g/dL (14.0-18.0)
[2019-10-10] MEDS: SODIUM CHLORIDE FLUSH 0.9% 10 ML SYRINGE IVP SCH ×3 (02:53→16:43)
[2019-10-10] MEDS: ACETAMINOPHEN 325 MG TABLET PO PRN (02:54)
[2019-10-10 05:12] LABS: BASOPHILS % (AUTO) 0.3 %; EOSINOPHILS % (AUTO) 0.2 %; HGB - HEMOGLOBIN 7.4 g/dL (14.0-18.0); LYMPHOCYTES # (AUTO) 0.6 10^3/uL (1.5-3.5); LYMPHOCYTES % (AUTO) 6.5 %; MEAN CORPUSCULAR HEMOGLOBIN 30.8 pg (27.0-31.0); MEAN CORPUSCULAR HGB CONC 31.8 g/dL (32.0-36.0); MEAN CORPUSCULAR VOLUME 97.1 fL (80.0-94.0); MEAN PLATELET VOLUME 10.3 fL (7.4-11.4); MONOCYTES # (AUTO) 0.5 10^3/uL (0.0-1.0); MONOCYTES % (AUTO) 5.7 %; NEUTROPHILS # (AUTO) 7.6 10^3/uL (1.5-6.6); NEUTROPHILS % (AUTO) 86.6 %; PLT - PLATELET COUNT 237 10^3/uL (130-450); RED CELL DISTRIBUTION WIDTH 13.1 % (12.0-15.0); WHITE BLOOD COUNT 8.8 x10^3/uL (4.8-10.8)
[2019-10-10 05:16] LABS: INR 1.7 (0.8-1.2); PT - PROTHROMBIN TIME 18.7 secs (9.9-12.6)
[2019-10-10 05:21] LABS: CALCIUM 7.7 mg/dL (8.5-10.3); CREATININE 0.9 mg/dL (0.6-1.2)
[2019-10-10] MEDS: PANTOPRAZOLE 40 MG TABLET PO SCH ×2 (06:51→16:39)
[2019-10-10] MEDS: cefTRIAXone 2 GM in SODIUM CHLORIDE 0.9% MINIBAG 100 ML IV SCH (08:38)
[2019-10-10] MEDS: SENNA 8.6 MG TABLET PO SCH (08:38)
[2019-10-10] MEDS: FERROUS GLUCONATE 324 MG TABLET PO SCH (08:38)
[2019-10-10] MEDS: DOCUSATE SODIUM 250 MG CAPSULE PO SCH (08:38)
[2019-10-10] MEDS: polyethylene glycoL 3350 17 GM PACKET PO SCH (08:39)
[2019-10-10] MEDS ORDERED: PHYTONADIONE 10 MG/ML AMP IVP STA (09:12)
--- NOTE | 2019-10-10 09:47 | ANESTHESIA ---
Pre-Anesthesia VS, & Labs - Diagnosis Diagnosis Anemia / melena UGI bleed presumed - Procedure EGD Vital Signs: Temp Pulse Resp BP Pulse Ox 36.9 C 70 17 133/60 H 93 10/10/19 08:00 10/10/19 08:00 10/10/19 08:00 10/10/19 08:00 10/10/19 08:00 Height 5 ft 10 in Weight (kg) 81.5 kg Body Mass Index 26.5 - Lab Results Current Lab Results: Laboratory Tests 10/10/19 04:25: PT 18.7 H, INR 1.7 H 10/10/19 04:25: Sodium 136, Potassium 3.6, Chloride 100 L, Carbon Dioxide 29, Anion Gap 7.0, BUN 24 H, Creatinine 0.9, Estimated GFR (MDRD) 80 L, Glucose 138 H, Calcium 7.7 L 10/10/19 04:25: WBC 8.8, RBC 2.40 L, Hgb 7.4 L, Hct 23.3 L, MCV 97.1 H, MCH 30.8, MCHC 31.8 L, RDW 13.1, Plt Count 237, MPV 10.3, Neut # (Auto) 7.6 H, Lymph # (Auto) 0.6 L, [place] # (Auto) 0.5, Eos # (Auto) 0.0, Baso # (Auto) 0.0, Absolute Nucleated RBC 0.00, Nucleated RBC % 0.0 10/09/19 16:45: Hgb 8.5 L, Hct 26.7 L 10/09/19 05:55: Sodium 135, Potassium 3.4 L, Chloride 98 L, Carbon Dioxide 29, Anion Gap 8.0, BUN 23 H, Creatinine 1.0, Estimated GFR (MDRD) 71 L, Glucose 124 H, Calcium 7.9 L, Total Bilirubin 0.4, AST 39, ALT 35, Alkaline Phosphatase 75, Total Protein 5.8 L, Albumin 1.9 L, Globulin 3.9, Albumin/Globulin Ratio 0.5 L 10/09/19 05:55: WBC 8.9, RBC 2.54 L, Hgb 7.9 L, Hct 24.7 L, MCV 97.2 H, MCH 31.1 H, MCHC 32.0, RDW 12.9, Plt Count 239, MPV 10.2, Neut # (Auto) 7.4 H, Lymph # (Auto) 0.7 L, [place] # (Auto) 0.7, Eos # (Auto) 0.0, Baso # (Auto) 0.1, Absolute Nucleated RBC 0.00, Nucleated RBC % 0.0 10/08/19 04:20: Sodium 139, Potassium 3.6, Chloride 98 L, Carbon Dioxide 29, Anion Gap 12.0, BUN 26 H, Creatinine 1.0, Estimated GFR (MDRD) 71 L, Glucose 134 H, Calcium 8.7, Total Bilirubin 0.4, AST 56 H, ALT 48, Alkaline Phosphatase 98, Total Protein 7.1, Albumin 2.3 L, Globulin 4.8 H, Albumin/Globulin Ratio 0.5 L 10/08/19 04:20: WBC 13.2 H, RBC 2.90 L, Hgb 9.1 L, Hct 28.5 L, MCV 98.3 H, MCH 31.4 H, MCHC 31.9 L, RDW 12.6, Plt Count 287, MPV 10.5, Neut # (Auto) 11.2 H, Lymph # (Auto) 1.2 L, [place] # (Auto) 0.7, Eos # (Auto) 0.0, Baso # (Auto) 0.0, Absolute Nucleated RBC 0.00, Nucleated RBC % 0.0 10/07/19 15:00: PT 19.6 H, INR 1.8 H 10/07/19 15:00: Potassium 3.7 10/07/19 04:25: Vitamin B12 589, Folate 12.69 10/07/19 04:25: Sodium 135, Potassium 3.1 L, Chloride 96 L, Carbon Dioxide 29, Anion Gap 10.0, BUN 27 H, Creatinine 1.2, Estimated GFR (MDRD) 57 L, Glucose 120 H, Calcium 8.0 L, Magnesium 1.7, Iron 15 L, TIBC 148 L, % Saturation 10 L, Transferrin 106 L, Total Bilirubin 0.5, AST 45 H, ALT 40, Alkaline Phosphatase 73, Total Protein 6.2 L, Albumin 2.2 L, Globulin 4.0, Albumin/Globulin Ratio 0.6 L 10/07/19 04:25: WBC 9.0, RBC 2.54 L, Hgb 7.9 L, Hct 24.9 L, MCV 98.0 H, MCH 31.1 H, MCHC 31.7 L, RDW 12.6, Plt Count 256, MPV 10.5, Neut # (Auto) 7.4 H, Lymph # (Auto) 0.8 L, [place] # (Auto) 0.7, Eos # (Auto) 0.0, Baso # (Auto) 0.0, Absolute Nucleated RBC 0.00, Nucleated RBC % 0.0 10/06/19 16:39: Blood Type A POSITIVE, Antibody Screen NEGATIVE 10/06/19 11:53: Blood Type Recheck A POSITIVE 10/06/19 11:53: Lactic Acid 1.4 10/06/19 11:53: Sodium 138, Potassium 3.0 L, Chloride 99 L, Carbon Dioxide 29, Anion Gap 10.0, BUN 30 H, Creatinine 1.4 H, Estimated GFR (MDRD) 48 L, Glucose 134 H, Calcium 8.4 L, Total Bilirubin 0.4, AST 52 H, ALT 41, Alkaline Phosphatase 71, Total Protein 6.2 L, Albumin 2.2 L, Globulin 4.0, Albumin/Globulin Ratio 0.6 L, Lipase 35 10/06/19 11:53: WBC 7.4, RBC 2.47 L, Hgb 7.7 L, Hct 24.5 L, MCV 99.2 H, MCH 31.2 H, MCHC 31.4 L, RDW 12.5, Plt Count 254, MPV 10.3, Neut # (Auto) 6.0, Lymph # (Auto) 0.7 L, [place] # (Auto) 0.7, Eos # (Auto) 0.0, Baso # (Auto) 0.0, Absolute Nucleated RBC 0.00, Nucleated RBC % 0.0 Fish Bones: 10/10/19 04:25 10/10/19 04:25 Home Medications and Allergies Active Medications Acetaminophen (Tylenol) 650 mg PO Q4HR PRN PRN Reason: Pain or Fever > 38C (100.4F) Last Admin: 10/10/19 02:54 Dose: 650 mg Cyclobenzaprine HCl (Flexeril) 5 mg PO TID PRN PRN Reason: Spasms Last Admin: 10/06/19 21:37 Dose: 5 mg Docusate Sodium (Colace 250mg Capsule) 250 - 500 mg PO DAILY [facility] Last Admin: 10/10/19 08:38 Dose: 250 mg Ferrous Gluconate (Fergon) 324 mg PO DAILYWM [facility] Last Admin: 10/10/19 08:38 Dose: 324 mg Hydralazine HCl (Apresoline Inj) 10 mg IVP Q6H PRN PRN Reason: PER PHYSICIAN ORDER Sodium Chloride (Normal Saline 0.9%) 1,000 mls @ 0 mls/hr IV .Q0M [facility] Last Infusion: 10/10/19 08:38 Dose: 0 mls/hr Ceftriaxone Sodium 2 gm/ (Sodium Chloride) 100 mls @ 200 mls/hr IV DAILY [facility] Last Infusion: 10/10/19 09:08 Dose: Infused Ondansetron HCl (Zofran Inj) 4 mg IVP Q6HR PRN PRN Reason: Nausea / Vomiting Pantoprazole Sodium (Protonix) 40 mg PO BIDAC [facility] Last Admin: 10/10/19 06:51 Dose: 40 mg Polyethylene Glycol (Miralax) 17 gm PO DAILY [facility] Last Admin: 10/10/19 08:39 Dose: Not Given Senna (Senokot) 8.6 - 17.2 mg PO DAILY [facility] Last Admin: 10/10/19 08:38 Dose: 8.6 mg Sodium Chloride (Normal Saline Flush 0.9%) 10 ml IVP PRN PRN PRN Reason: NEEDED PER PROVIDER ORDERS Last Admin: 10/06/19 18:48 Dose: 10 ml Sodium Chloride (Normal Saline Flush 0.9%) 10 ml IVP 0100,0900,1700 [facility] Last Admin: 10/10/19 08:39 Dose: 10 ml Hydrochlorothiazide 12.5 mg PO DAILY 12/14/17 Omeprazole 20 mg PO DAILY 12/14/17 Allergies/Adverse Reactions: Allergies Allergy/AdvReac Type Severity Reaction Status Date / Time No Known Drug Allergies Allergy Verified 09/30/19 13:29 Anes History & Medical History - Anesthetic History Anesthesia Complications: reports: No previous complications Family history of Anesthesia Complications: Denies Family history of Malignant Hyperthermia: Denies - Medical History Cardiovascular: reports: Hypertension Pulmonary: reports: None Gastrointestinal: reports: GERD Urinary: reports: Other (Prostate cancer, Bladder cancer) Neuro: reports: None Musculoskeletal: reports: Chronic back pain, Other Endocrine/Autoimmune: reports: None Blood Disorders: reports: None Smoking Status: Never smoker Psychosocial: reports: Alcohol ("1 to 2 drinks a day") Other Past Medical History: bladder ca - Surgical History General: Colonoscopy, Other (left ankle surgery 8 years ago) Urologic: Bladder surgery Orthopedic: Arthroscopic surgery, Other Exam General: Alert, Oriented x3, Cooperative, No acute distress Dental: WNL Mouth Openin Fingerbreadth Neck Mobility: Normal Mallampati classification: II Thyromental Distance: 4-6 cm Respiratory: Lungs clear, Normal breath sounds, No respiratory distress, No accessory muscle use Cardiovascular: Regular rate, Normal S1, Normal S2, No murmurs Abdomen: Normal bowel sounds, Soft, No tenderness, No hepatospenomegaly, No masses Extremities: No clubbing, No cyanosis, No edema, Normal pulses, No tenderness/swelling Neurological: Normal gait, Normal speech, Strength at 5/5 X4 ext, Normal tone, Sensation intact, Cranial nerves 3-12 NL, Reflexes 2+ Mental/Cognitive Status: Alert/Oriented X3, Normal for patient Cognitive Status: Within normal limits Plan Anesthesia Type: MAC Consent for Procedure(s) Verified and Reviewed: Yes Code Status: Attempt Resuscitation ASA classification: 3-Severe systemic disease Is this case an emergency?: Yes
--- NOTE | 2019-10-10 10:03 | Ultrasound Report ---
Reason: Fever, Gram neg UTI, prostate CA hx Procedure Date: 10/10/2019 Accession Number: [id number] / [id number] Procedure: US - Retroperitoneal CPT Code: Addended Final Report FULL RESULT: EXAM: RENAL ULTRASOUND EXAM DATE: 10/10/2019 07:25 AM. CLINICAL HISTORY: Fever, Gram neg UTI, prostate CA hx. COMPARISON: CT IVP 06/09/2019 9:34 AM. TECHNIQUE: Real-time scanning was performed with static images obtained. FINDINGS: Right Kidney: 11.0 x 6.1 x 6.0 cm. Normal echotexture with no stones, contour-deforming masses, or hydronephrosis. Left Kidney: 14.3 x 5.5 x 5.9 cm. Normal echotexture with no stones, contour-deforming masses, or hydronephrosis. There is a simple cortical cyst at the inferior/medial aspect of the kidney measuring 8.8 x 7.6 x 6.2 cm, as seen on prior CT IVP. There is a simple cortical cyst at the inferior/lateral aspect of the left kidney measuring 2.1 x 1.8 x 1.0 cm, as seen on prior CT IVP. Bladder: Bilateral ureteral jets were not seen. The prevoid bladder volume was 34.3 cc. The postvoid bladder volume was 30.8 cc. The urinary bladder wall appears mildly thickened measuring up to 5 mm, although the bladder is not completely distended. There is a heterogeneous solid-appearing focus with internal vascularity located at the posterior/inferior right urinary bladder. This measures approximately 2.1 x 1.8 x 1.4 cm. There are punctate echogenic foci in the partially visualized prostate, consistent with brachytherapy seeds seen on prior CT. Other: None. IMPRESSION: 1. No hydronephrosis bilaterally. 2. Simple-appearing left renal cortical cysts, as seen on prior CT IVP. 3. Possible mild bladder wall thickening, although the bladder is not completely distended on prevoid images. 4. Solid-appearing focus with internal vascular flow at the posterior inferior right urinary bladder. This may represent an exophytic nodular component of the prostate or possible bladder mass. Recommend further evaluation with cystoscopy when clinically appropriate. [facility] The call report notification system was initiated by Dr. Filiberto Dickey at 10:02 AM on 10/10/2019. ADDENDUM: 10/10/19 10:09 The above call report findings were discussed with Chloé Carbajal by Dr. Filiberto Dickey at 10:09 AM on 10/10/2019.
[2019-10-10] MEDS ORDERED: LACTATED RINGERS 1,000 ML IV ONE (10:16)
[2019-10-10] MEDS ORDERED: ETOMIDATE 40 MG/20 ML VIAL IVP ONE (10:18)
[2019-10-10] MEDS ORDERED: LIDOCAINE-MPF 2% 5 ML VIAL IM ONE (10:18)
[2019-10-10] MEDS ORDERED: PHENYLEPHRINE 50 MG/5 ML VIAL IV ONE (10:18)
[2019-10-10] MEDS ORDERED: GLUCAGON 1 MG/ML VIAL IM ONE (10:18)
[2019-10-10] MEDS ORDERED: PROPOFOL 200 MG/20 ML VIAL IVP ONE (10:18)
[2019-10-10] MEDS ORDERED: MIDAZOLAM 2 MG/2 ML VIAL IVP ONE (10:18)
--- NOTE | 2019-10-10 10:50 | PROVIDER PROGRESS NOTE ---
Assessment/Plan - Problem List (1) FUO (fever of unknown origin) Assessment/Plan: I spoke to the Infectious Disease attending at on the [employer] phone line today and reviewed the entire case including prostate and bladder CA Hx, the Hong removal on 08/12/2019, presentation to the ER on 09/30/19 when urine culture sent and he got Cipro oral treatment, returned with persistent sx and his 5-day hospital stay here with continued nightly fever spikes, neg repeat urine and blood cx and use of Ceftriaxone since admitted. The ID attending recommended making sure he did not have influenza symptoms, and he does not have a cough, N/V or diarrhea. Also after reviewing with her, the sensitivities of the Enterococcus faecalis and Aerococcus urinae, from the positive urine culture of 09/30/2019, she recommended not to Ceftriaxone which is a poor choice for Enterococcus, to switch to Ampicillin or Ampicillin/Sulbactam or Vanco. She also recommended proceeding to a CT scan of the abdomen and pelvis to look for an abscess. Since there were no positive blood cultures, endocarditis would be difficult to pin down and there would need to be an Echo (and we do not have Echo available here until 10/14/2019). In reviewing this chart, I noticed there was no chest x-ray done on admission, therefore will get a chest x-ray. Order a CT of the abdomen/pelvis with contrast to look for abscess, plus look at his spine, since he has had weeks of low back pain. Will change antibiotic treatment to Amp/Sulbactam 3 g IV every 6 hours. She stated there was no big utility in getting blood cultures with every fever spike, since there are now 3 blood cultures and all have been negative, and he has been on antibx. The above plan was reviewed with the patient and family member at bedside. After the CT abdomen pelvis was done, I recalled the [facility] Disease doctor with the results. The main findings were new lymph nodes, many throughout the abdomen and pelvis that were periaortic, new since May 2019. Also a mass in the lower bladder was seen. No areas had abscess, no hydronephrosis, no stones, LS-spine looked normal, some srthritic change of the R sacro-iliac joint (was an added impression by Brandy when I called them back). I will reach out to Urology regarding these findings and the patient's entire course: He follows with Dr. Cano at [facility], which is part of . The above was all reviewed with the patient and many family members at bedside. (2) UTI (urinary tract infection) Qualifiers: Urinary tract infection type: site unspecified Hematuria presence: without hematuria Qualified Code(s): N39.0 - Urinary tract infection, site not specified Assessment/Plan: As above: stop Ceftriaxone, scan for abscess, start Unasyn iv. (3) Anemia Qualifiers: Anemia type: iron deficiency Assessment/Plan: Hgb dropped to 7.4. Continue po Iron. Continue W/U (4) GI bleed Assessment/Plan: He was using Ibuprofen for LBP, and his inr is abnormally elevated, possibly from alcohol use/abuse. Vit K 5 mg iv given x1 this a.m, since he will get biopsies during EGD EGD this morning done by Dr Tatum showed a hyperemic nodule at the duodenum which was biopsied. Dr Tatum recommended a colonoscopy. A Suprep will be ordered for tonight, then NPO after midnight. (5) Elevated INR Assessment/Plan: His INR is abnormally elevated, possibly from alcohol use/abuse. There have been no signs of alcohol withdrawal, today is day 5 here. Vit K 5 mg iv given x1 this a.m, since he will get biopsies during EGD (6) VIRGINIE (acute kidney injury) Assessment/Plan: The creatinine has improved to normal. There is still elevated BUN/creatinine ratio, suggestive of mild dehydration. He has not been on HCTZ since admission Continue with gentle IV hydration, especially with his fever spikes. (7) Hypertension Assessment/Plan: Blood pressure is normal. He has not been on HCTZ since admission. (8) Bladder cancer Assessment/Plan: Bladder CA per history. The renal ultrasound done today did show a nodule at the right inferior lower bladder and cystoscopy was advised by the radiologist. We have no information about where the bladder cancer was localized to on prior evaluation by his Urologist (9) Hypokalemia Assessment/Plan: Resolved - Current Meds Current Meds: Current Medications Generic Name Dose Route Start Last Admin Trade Name Freq PRN Reason Stop Dose Admin Acetaminophen 650 mg 10/06/19 17:08 10/10/19 02:54 Tylenol PO 650 mg Q4HR PRN Administration Pain or Fever > 38C (100.4F) Cyclobenzaprine HCl 5 mg 10/06/19 19:41 10/06/19 21:37 Flexeril PO 5 mg TID PRN Administration Spasms Docusate Sodium 250 - 500 mg 10/07/19 09:00 10/10/19 08:38 Colace 250mg Capsule PO 250 mg DAILY [facility] Administration Ferrous Gluconate 324 mg 10/07/19 12:00 10/10/19 08:38 Fergon PO 324 mg DAILYWM [facility] Administration Sodium Chloride 1,000 mls @ 0 mls/hr 10/06/19 18:00 10/10/19 08:38 Normal Saline 0.9% IV 0 mls/hr .Q0M [facility] Infusion TKO Pantoprazole Sodium 40 mg 10/09/19 21:00 10/10/19 06:51 Protonix PO 40 mg BIDAC [facility] Administration Polyethylene Glycol 17 gm 10/07/19 09:00 10/10/19 08:39 Miralax PO Not Given DAILY [facility] Senna 8.6 - 17.2 mg 10/07/19 09:00 10/10/19 08:38 Senokot PO 8.6 mg DAILY [facility] Administration Sodium Chloride 10 ml 10/06/19 17:08 10/06/19 18:48 Normal Saline Flush 0.9% IVP 10 ml PRN PRN Administration NEEDED PER PROVIDER ORDERS Sodium Chloride 10 ml 10/07/19 01:00 10/10/19 08:39 Normal Saline Flush 0.9% IVP 10 ml 0100,0900,1700 [facility] Administration - Lab Result Fish Bone Diagrams: 10/10/19 04:25 10/10/19 04:25 - Additional Planning My Orders: My Active Orders 10/09/19 21:00 Pantoprazole [Protonix] 40 mg PO BIDAC 10/10/19 Social Work Consult [CONS] Routine 10/10/19 00:01 DIET [NPO except Meds at Midnight] [DIET] 10/10/19 10:38 ABDOMEN/PELVIS W [CT] Routine 10/10/19 10:40 Chest 2 View X-Ray [XR] Routine 10/10/19 12:00 Ampicillin/Sulbactam [Unasyn] 3 gm Sodium Chloride 0.9% Minibag [Normal Saline 0.9% Minibag] 100 ml IV Q6HR 10/10/19 17:00 Saccharomyces Carodii [Florastor] 250 mg PO BIDWM 10/11/19 05:00 BMP - BASIC METABOLIC PANEL [CHEM] DAILYLAB CBC - COMP BLD CT W/AUTO DIFF [HEME] DAILYLAB 10/12/19 05:00 BMP - BASIC METABOLIC PANEL [CHEM] DAILYLAB CBC - COMP BLD CT W/AUTO DIFF [HEME] DAILYLAB Objective Vital Signs: Vital Signs - 24 hr 10/09/19 10/09/19 10/09/19 16:00 18:59 20:10 Temperature 38.7 C H 37.2 C 36.7 C Heart Rate [ 88 Brachial] Respiratory 20 Rate Blood Pressure 141/64 H 121/58 L [Left Brachial artery] O2 Saturation 93 97 10/10/19 10/10/19 10/10/19 00:00 02:49 04:19 Temperature 37.4 C 38.7 C H 36.8 C Heart Rate [ 89 Brachial] Respiratory 18 Rate Blood Pressure 154/70 H [Left Brachial artery] O2 Saturation 91 L 10/10/19 08:00 Temperature 36.9 C Heart Rate [ 70 Brachial] Respiratory 17 Rate Blood Pressure 133/60 H [Left Brachial artery] O2 Saturation 93 Oxygen O2 Source Nasal cannula I&O (Last 24 Hrs): Intake and Output Totals x24h 10/08/19 10/09/19 10/10/19 23:59 23:59 23:59 Intake Total 8056.006 2848.417 116.25 Output Total 75 Balance 7505.976 6280.417 116.25 - Results Results: Laboratory Results WBC 8.8 x10^3/uL (4.8-10.8) 10/10/19 04:25 RBC 2.40 10^6/uL (4.70-6.10) L 10/10/19 04:25 Hgb 7.4 g/dL (14.0-18.0) L 10/10/19 04:25 Hct 23.3 % (42.0-52.0) L 10/10/19 04:25 MCV 97.1 fL (80.0-94.0) H 10/10/19 04:25 MCH 30.8 pg (27.0-31.0) 10/10/19 04:25 MCHC 31.8 g/dL (32.0-36.0) L 10/10/19 04:25 RDW 13.1 % (12.0-15.0) 10/10/19 04:25 Plt Count 237 10^3/uL (130-450) 10/10/19 04:25 MPV 10.3 fL (7.4-11.4) 10/10/19 04:25 Neut # (Auto) 7.6 10^3/uL (1.5-6.6) H 10/10/19 04:25 Lymph # (Auto) 0.6 10^3/uL (1.5-3.5) L 10/10/19 04:25 Bond # (Auto) 0.5 10^3/uL (0.0-1.0) 10/10/19 04:25 Eos # (Auto) 0.0 10^3/uL (0.0-0.7) 10/10/19 04:25 Baso # (Auto) 0.0 10^3/uL (0.0-0.1) 10/10/19 04:25 Absolute Nucleated RBC 0.00 x10^3/uL 10/10/19 04:25 Nucleated RBC % 0.0 /100WBC 10/10/19 04:25 PT 18.7 secs (9.9-12.6) H 10/10/19 04:25 INR 1.7 (0.8-1.2) H 10/10/19 04:25 Sodium 136 mmol/L (135-145) 10/10/19 04:25 Potassium 3.6 mmol/L (3.5-5.0) 10/10/19 04:25 Chloride 100 mmol/L (101-111) L 10/10/19 04:25 Carbon Dioxide 29 mmol/L (21-32) 10/10/19 04:25 Anion Gap 7.0 (6-13) 10/10/19 04:25 BUN 24 mg/dL (6-20) H 10/10/19 04:25 Creatinine 0.9 mg/dL (0.6-1.2) 10/10/19 04:25 Estimated GFR (MDRD) 80 (>89) L 10/10/19 04:25 Glucose 138 mg/dL (70-100) H 10/10/19 04:25 Lactic Acid 1.4 mmol/L (0.5-2.2) 10/06/19 11:53 Calcium 7.7 mg/dL (8.5-10.3) L 10/10/19 04:25 Magnesium 1.7 mg/dL (1.7-2.8) 10/07/19 04:25 Iron 15 ug/dL (45-182) L 10/07/19 04:25 TIBC 148 ug/dL (250-450) L 10/07/19 04:25 % Saturation 10 % (20-50) L 10/07/19 04:25 Transferrin 106 mg/dL (180-329) L 10/07/19 04:25 Total Bilirubin 0.4 mg/dL (0.2-1.0) 10/09/19 05:55 AST 39 IU/L (10-42) 10/09/19 05:55 ALT 35 IU/L (10-60) 10/09/19 05:55 Alkaline Phosphatase 75 IU/L (42-121) 10/09/19 05:55 Total Protein 5.8 g/dL (6.7-8.2) L 10/09/19 05:55 Albumin 1.9 g/dL (3.2-5.5) L 10/09/19 05:55 Globulin 3.9 g/dL (2.1-4.2) 10/09/19 05:55 Albumin/Globulin Ratio 0.5 (1.0-2.2) L 10/09/19 05:55 Lipase 35 U/L (22-51) 10/06/19 11:53 Vitamin B12 589 pg/mL (180-914) 10/07/19 04:25 Folate 12.69 ng/mL (5.90 - >24.8) 10/07/19 04:25 Urine Color YELLOW 10/06/19 14:28 Urine Clarity CLOUDY (CLEAR) 10/06/19 14:28 Urine pH 5.0 PH (5.0-7.5) 10/06/19 14:28 Ur Specific [place] >=1.030 (1.002-1.030) H 10/06/19 14:28 Urine Protein 100 mg/dL (NEGATIVE) H 10/06/19 14:28 Urine Glucose (UA) NEGATIVE mg/dL (NEGATIVE) 10/06/19 14:28 Urine Ketones NEGATIVE mg/dL (NEGATIVE) 10/06/19 14:28 Urine Occult Blood SMALL (NEGATIVE) H 10/06/19 14:28 Urine Nitrite NEGATIVE (NEGATIVE) 10/06/19 14:28 Urine Bilirubin SMALL (NEGATIVE) H 10/06/19 14:28 Urine Urobilinogen 1 (NORMAL) E.U./dL (NORMAL) 10/06/19 14:28 Ur Leukocyte Esterase SMALL (NEGATIVE) H 10/06/19 14:28 Urine RBC 0-5 /HPF (0-5) 10/06/19 14:28 Urine WBC >25 /HPF (0-3) H 10/06/19 14:28 Ur Squamous Epith Cells RARE Squamous (<= Few) 10/06/19 14:28 Amorphous Sediment Few /LPF 10/06/19 14:28 Urine Bacteria Few /HPF (None Seen) 10/06/19 14:28 Urine Casts 0-2 Hyaline Casts /LPF 10/06/19 14:28 Ur Microscopic Review INDICATED 10/06/19 14:28 Urine Culture Comments INDICATED 10/06/19 14:28 Blood Type A POSITIVE 10/06/19 16:39 Blood Type Recheck A POSITIVE 10/06/19 11:53 Antibody Screen NEGATIVE 10/06/19 16:39
[2019-10-10] MEDS ORDERED: IOVERSOL 320 50 ML VIAL ONE (10:58)
[2019-10-10] MEDS ORDERED: IOVERSOL 320 100 ML VIAL IVP ONE ×2 (10:58→14:41)
[2019-10-10] MEDS: SODIUM CHLORIDE 0.9% 1,000 ML IV SCH (11:25)
[2019-10-10] MEDS: AMPICILLIN/SULBACTAM 3 GM in SODIUM CHLORIDE 0.9% MINIBAG 100 ML IV SCH ×3 (11:30→23:58)
--- NOTE | 2019-10-10 14:40 | XRAY Report ---
Reason: fever and chills Procedure Date: 10/10/2019 Accession Number: [id number] / [id number] Procedure: XR - Chest 2 View X-Ray CPT Code: 68407 Final Report FULL RESULT: EXAM: CHEST RADIOGRAPHY EXAM DATE: 10/10/2019 02:07 PM. CLINICAL HISTORY: Fever and chills. COMPARISON: 12/31/2009 8:34 PM. TECHNIQUE: 2 views. FINDINGS: Lungs/Pleura: Tiny nodular opacities and minimal interstitial prominence are seen in both upper lung zones. Bibasilar atelectases and scarring noted. No pleural effusion. No pneumothorax. Normal volumes. Mediastinum: Heart and mediastinal contours are unremarkable. Other: None. IMPRESSION: Tiny nodular densities and minimal interstitial prominence in both upper lung zones. Differentials include viral/atypical pneumonia versus inflammatory pneumonitis. [facility]
[2019-10-10] MEDS ORDERED: IOVERSOL 320 50 ML VIAL PO ONE (14:41)
--- NOTE | 2019-10-10 15:00 | CT Report ---
Reason: fevers, UTI, low back pain, eval for abscess Procedure Date: 10/10/2019 Accession Number: [id number] / [id number] Procedure: CT - Abdomen/Pelvis W CPT Code: Final Report FULL RESULT: EXAM: CT ABDOMEN AND PELVIS WITH CONTRAST EXAM DATE: 10/10/2019 02:04 PM. CLINICAL HISTORY: Fevers, UTI and low back pain in an 89-year-old male. Evaluate for abscess. COMPARISONS: CT IVP 06/09/2019 9:[address] IVP 02/16/2018 9:36 AM. TECHNIQUE: Routine helical CT imaging was performed through the abdomen and pelvis. IV contrast: 90 mL OPTI 320. Enteric contrast: Yes. Reconstructions: Coronal and sagittal. In accordance with CT protocol optimization, one or more of the following dose reduction techniques were utilized for this exam: automated exposure control, adjustment of mA and/or KV based on patient size, or use of iterative reconstructive technique. FINDINGS: Lung Bases: Small bilateral pleural effusions, slightly greater on the left, new from earlier studies. Moderate sized hiatus hernia again noted. Patchy atelectasis both lung bases. 11 mm nodule left lung base laterally on scan 3-9, similar to most recent prior study. Liver: Decreased attenuation consistent with mild fatty infiltration, as previous. No mass or cyst. Gallbladder/Bile Ducts: No gallstones, wall thickening or dilated bile ducts. Spleen: Normal. Pancreas: Normal. Adrenal Glands: Normal. Right kidney: Normal. No masses, nephrolithiasis, hydroureter or hydronephrosis. Left kidney: Prominent kidney cyst midportion laterally 8.3 x 7.1 cm, slightly larger than previously. Additional smaller inferior pole medial cyst 1.5 cm in diameter, previously 1.8 cm. No solid mass, nephrolithiasis, hydronephrosis or hydroureter. Peritoneal Cavity/Bowel: No free fluid or free air. Multiple new small to moderate sized lymph nodes surrounding the aorta, the largest 2.8 cm in maximum diameter on scan 3-51. No masses or acute inflammatory process. The appendix is well visualized and normal. Pelvic Organs: Question of echogenic fluid versus mass in the urinary bladder, new from prior study, possibly related to contrast injection. No bladder wall thickening or obstruction additional small lymph nodes bilaterally, new from prior study. Vasculature: No aneurysms or other significant abnormality. Bones: Unremarkable for age. No acute process or metastatic disease. Other: None. IMPRESSION: Small bilateral pleural effusions, left greater than right with question of infiltrates versus atelectasis both lung bases. Stable 11 mm nodule left lung base laterally. Multiple lymph nodes surrounding the aorta and iliac arteries extending down from the mid abdomen to the pelvis, largest 2.8 cm in diameter, all new from prior study of 06/09/2019. Normal right kidney. Stable prominent left renal cyst 8.3 cm in diameter. Questionable echogenic fluid versus possible mass within the urinary bladder, new from prior studies. [facility]
[2019-10-10] MEDS: SACCHAROMYCES BOULARDII 250 MG CAPSULE PO SCH (16:42)
[2019-10-10] MEDS: SODIUM/POTASSIUM/MAG SULFATES 354 ML PREP KIT PO SCH (18:21)
[2019-10-11] MEDS: SODIUM/POTASSIUM/MAG SULFATES 354 ML PREP KIT PO SCH (05:04)
[2019-10-11] MEDS: SODIUM CHLORIDE FLUSH 0.9% 10 ML SYRINGE IVP SCH ×4 (05:09→23:39)
[2019-10-11] MEDS: AMPICILLIN/SULBACTAM 3 GM in SODIUM CHLORIDE 0.9% MINIBAG 100 ML IV SCH ×4 (05:57→23:38)
[2019-10-11 06:09] LABS: BASOPHILS % (AUTO) 0.3 %; EOSINOPHILS % (AUTO) 0.1 %; HGB - HEMOGLOBIN 7.8 g/dL (14.0-18.0); LYMPHOCYTES # (AUTO) 0.7 10^3/uL (1.5-3.5); LYMPHOCYTES % (AUTO) 7.9 %; MEAN CORPUSCULAR HEMOGLOBIN 30.5 pg (27.0-31.0); MEAN CORPUSCULAR HGB CONC 31.2 g/dL (32.0-36.0); MEAN CORPUSCULAR VOLUME 97.7 fL (80.0-94.0); MEAN PLATELET VOLUME 10.1 fL (7.4-11.4); MONOCYTES # (AUTO) 0.5 10^3/uL (0.0-1.0); MONOCYTES % (AUTO) 5.6 %; NEUTROPHILS # (AUTO) 7.7 10^3/uL (1.5-6.6); NEUTROPHILS % (AUTO) 85.5 %; PLT - PLATELET COUNT 257 10^3/uL (130-450); RED BLOOD COUNT 2.56 10^6/uL (4.70-6.10); RED CELL DISTRIBUTION WIDTH 13.2 % (12.0-15.0)
[2019-10-11] MEDS: PANTOPRAZOLE 40 MG TABLET PO SCH ×2 (06:49→17:10)
[2019-10-11] MEDS: DOCUSATE SODIUM 250 MG CAPSULE PO SCH (09:07)
[2019-10-11] MEDS: SENNA 8.6 MG TABLET PO SCH (09:07)
[2019-10-11] MEDS: polyethylene glycoL 3350 17 GM PACKET PO SCH (09:07)
[2019-10-11] MEDS: SACCHAROMYCES BOULARDII 250 MG CAPSULE PO SCH ×2 (09:11→17:10)
[2019-10-11] MEDS: FERROUS GLUCONATE 324 MG TABLET PO SCH (09:11)
--- NOTE | 2019-10-11 09:11 | CONSULTATION NOTE ---
Consultation Report: Patient seen by anesthesia yesterday, continues to have a GI bleed, no other changes. Will do MAC foe colonscopy.
[2019-10-11] MEDS ORDERED: SODIUM CHLORIDE 0.9% 1,000 ML IV ONE ×2 (10:01)
[2019-10-11] MEDS: SODIUM CHLORIDE 0.9% 1,000 ML IV SCH (11:20)
--- NOTE | 2019-10-11 11:40 | PROCEDURE REPORT ---
Hospitalist Procedure Note - Procedure Note Procedure Note: Colonoscopy: 4 polyps; resected; no active bleeding was evident and no obvious source of major gi bleeding was identified.
--- NOTE | 2019-10-11 16:25 | PROVIDER PROGRESS NOTE ---
Assessment/Plan - Problem List (1) FUO (fever of unknown origin) Assessment/Plan: There was only a low-grade fever overnight. No new positive culture results. I reached out to the physician's dietetic assistant of and reviewed the urology concerns including lymph nodes on CT scan. She thought the lymph nodes were related to his cancer, advised continuation with current antibiotics and management, and that the patient will have an office visit with before the October 16, 2019 repeat bladder surgery that is planned. We will plan 48 hours of iv antibx continue from the time of the last fever spik e then transition to oral medications at which time he could be discharged home. I reported all this to the patient and [id number] at the bedside. (2) UTI (urinary tract infection) Qualifiers: Urinary tract infection type: site unspecified Hematuria presence: without hematuria Qualified Code(s): N39.0 - Urinary tract infection, site not specified Assessment/Plan: As above. (3) Anemia Qualifiers: Anemia type: iron deficiency Assessment/Plan: Hemoglobin has been stable at 7-8 since admission. The EGD showed no active bleeding but hyperemic nodule which was biopsied and today the colonoscopy showed 4 polyps which were not bleeding and were biopsied. He probably had bleeding related to Motrin overuse, that has now stopped (4) GI bleed Assessment/Plan: The guiac of stool was (+). Plan as above. (5) Elevated INR Assessment/Plan: Probably related to nutrition and daily alcohol use. He did receive vitamin K o nce before the first biopsy. INR has decreased from 1.8 to 1.7 to 1.5 (6) VIRGINIE (acute kidney injury) Assessment/Plan: BUN/creatinine has now been 24/1.0 for the past 3 days, prerenal azotemia consistent with volume depletion is suspected. The creatinine is now normal (7) Hypertension Assessment/Plan: Stable with current management. (8) Bladder cancer Assessment/Plan: I reached out to his Urologist, Dr. Nina Tapia, and spoke to her nurse there, who read the last note and stated that his entire case had been handed over to . 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 I then reached out to the office of Dr Cano. The PA of Dr. Cano spoke to me by phone. Dr Cano was out of town. We reviewed his entire hospital course. The PA will contact Dr Cano, discuss the case and the patient's CT scan results. The PA thought the new lymph nodes are likely related to his cancer and that there will probably be an office visit before the October 16, 2019 bladder surgery in case there will be a different plan. The PA requested that CT images be pushed to [facility] (this was ordered to be done). The PA agreed with our management and did not recommend that the patient be transferred for higher level of care. I reported these conversations to the patient and [id number] in the room, who said she would update the rest of the family. (9) Hypokalemia Assessment/Plan: Resolved - Current Meds Current Meds: Current Medications Generic Name Dose Route Start Last Admin Trade Name Freq PRN Reason Stop Dose Admin Acetaminophen 650 mg 10/06/19 17:08 10/10/19 02:54 Tylenol PO 650 mg Q4HR PRN Administration Pain or Fever > 38C (100.4F) Cyclobenzaprine HCl 5 mg 10/06/19 19:41 10/06/19 21:37 Flexeril PO 5 mg TID PRN Administration Spasms Docusate Sodium 250 - 500 mg 10/07/19 09:00 10/11/19 09:07 Colace 250mg Capsule PO Not Given DAILY CORIN Ferrous Gluconate 324 mg 10/07/19 12:00 10/11/19 09:11 Fergon PO 324 mg DAILYWM CORIN Administration Sodium Chloride 1,000 mls @ 0 mls/hr 10/06/19 18:00 10/11/19 11:20 Normal Saline 0.9% IV 10 mls/hr .Q0M CORIN Administration TKO Ampicillin Sodium/Sulbactam 100 mls @ 200 mls/hr 10/10/19 12:00 10/11/19 11:50 Sodium 3 gm/ Sodium Chloride IV Infused Q6HR CORIN Infusion Pantoprazole Sodium 40 mg 10/09/19 21:00 10/11/19 06:49 Protonix PO 40 mg BIDAC CORIN Administration Polyethylene Glycol 17 gm 10/07/19 09:00 10/11/19 09:07 Miralax PO Not Given DAILY CORIN Saccharomyces Boulardii 250 mg 10/10/19 17:00 10/11/19 09:11 Florastor PO 250 mg BIDWM CORIN Administration Senna 8.6 - 17.2 mg 10/07/19 09:00 10/11/19 09:07 Senokot PO Not Given DAILY CORIN Sodium Chloride 10 ml 10/06/19 17:08 10/06/19 18:48 Normal Saline Flush 0.9% IVP 10 ml PRN PRN Administration NEEDED PER PROVIDER ORDERS Sodium Chloride 10 ml 10/07/19 01:00 10/11/19 09:07 Normal Saline Flush 0.9% IVP Not Given 0100,0900,1700 CORIN - Lab Result Fish Bone Diagrams: 10/12/19 05:52 10/12/19 05:55 - Additional Planning My Orders: My Active Orders 10/10/19 17:00 Saccharomyces Boulardii [Florastor] 250 mg PO BIDWM 10/11/19 Evaluate and Treat OT [OT] Routine Evaluate and Treat PT [PT] Routine 10/11/19 Lunch DIET [Regular Diet] [DIET] 10/12/19 05:00 BMP - BASIC METABOLIC PANEL [CHEM] DAILYLAB CBC - COMP BLD CT W/AUTO DIFF [HEME] DAILYLAB Subjective - Subjective Patient Reports: Resting Comfortably Objective Vital Signs: Vital Signs - 24 hr 10/10/19 10/11/19 10/11/19 23:33 07:57 10:35 Temperature 37.6 C H 37.4 C 36.6 C Heart Rate 76 Heart Rate [ 80 82 Brachial] Respiratory 20 16 20 Rate Blood Pressure 98/58 L Blood Pressure 115/54 L 138/61 H [Right Brachial artery] O2 Saturation 93 94 97 10/11/19 10/11/19 10/11/19 10:40 10:45 10:50 Temperature Heart Rate 73 70 73 Heart Rate [ Brachial] Respiratory 19 16 19 Rate Blood Pressure 110/53 L 110/50 L 109/56 L Blood Pressure [Right Brachial artery] O2 Saturation 96 98 96 10/11/19 10/11/19 10/11/19 10:55 11:03 11:11 Temperature 36.5 C 36.6 C 36.7 C Heart Rate 73 76 Heart Rate [ 77 Brachial] Respiratory 20 21 16 Rate Blood Pressure 109/60 120/52 L Blood Pressure 121/59 L [Right Brachial artery] O2 Saturation 100 98 100 Oxygen O2 Source Nasal cannula I&O (Last 24 Hrs): Intake and Output Totals x24h 10/09/19 10/10/19 10/11/19 23:59 23:59 23:59 Intake Total 2665.417 1652.75 792.667 Balance 2665.417 1652.75 792.667 General: Alert, Oriented x3, Other (Appears tired.) HEENT: Mucous membr. moist/pink Neck: Supple Neuro: Alert, Non Focal Cardiovascular: Regular rate Respiratory: No respiratory distress Abdomen: Soft Extremities: No edema - Results Results: Laboratory Results WBC 9.0 x10^3/uL (4.8-10.8) 10/11/19 05:51 RBC 2.56 10^6/uL (4.70-6.10) L 10/11/19 05:51 Hgb 7.8 g/dL (14.0-18.0) L 10/11/19 05:51 Hct 25.0 % (42.0-52.0) L 10/11/19 05:51 MCV 97.7 fL (80.0-94.0) H 10/11/19 05:51 MCH 30.5 pg (27.0-31.0) 10/11/19 05:51 MCHC 31.2 g/dL (32.0-36.0) L 10/11/19 05:51 RDW 13.2 % (12.0-15.0) 10/11/19 05:51 Plt Count 257 10^3/uL (130-450) 10/11/19 05:51 MPV 10.1 fL (7.4-11.4) 10/11/19 05:51 Neut # (Auto) 7.7 10^3/uL (1.5-6.6) H 10/11/19 05:51 Lymph # (Auto) 0.7 10^3/uL (1.5-3.5) L 10/11/19 05:51 [place] # (Auto) 0.5 10^3/uL (0.0-1.0) 10/11/19 05:51 Eos # (Auto) 0.0 10^3/uL (0.0-0.7) 10/11/19 05:51 Baso # (Auto) 0.0 10^3/uL (0.0-0.1) 10/11/19 05:51 Absolute Nucleated RBC 0.00 x10^3/uL 10/11/19 05:51 Nucleated RBC % 0.0 /100WBC 10/11/19 05:51 PT 18.7 secs (9.9-12.6) H 10/10/19 04:25 INR 1.7 (0.8-1.2) H 10/10/19 04:25 Whole Blood INR 1.5 (0.8-1.2) H 10/11/19 05:51 Sodium 140 mmol/L (135-145) 10/11/19 05:51 Potassium 3.5 mmol/L (3.5-5.0) 10/11/19 05:51 Chloride 101 mmol/L (101-111) 10/11/19 05:51 Carbon Dioxide 28 mmol/L (21-32) 10/11/19 05:51 Anion Gap 11.0 (6-13) 10/11/19 05:51 BUN 24 mg/dL (6-20) H 10/11/19 05:51 Creatinine 1.0 mg/dL (0.6-1.2) 10/11/19 05:51 Estimated GFR (MDRD) 71 (>89) L 10/11/19 05:51 Glucose 137 mg/dL (70-100) H 10/11/19 05:51 Lactic Acid 1.4 mmol/L (0.5-2.2) 10/06/19 11:53 Calcium 8.0 mg/dL (8.5-10.3) L 10/11/19 05:51 Magnesium 1.7 mg/dL (1.7-2.8) 10/07/19 04:25 Iron 15 ug/dL (45-182) L 10/07/19 04:25 TIBC 148 ug/dL (250-450) L 10/07/19 04:25 % Saturation 10 % (20-50) L 10/07/19 04:25 Transferrin 106 mg/dL (180-329) L 10/07/19 04:25 Total Bilirubin 0.4 mg/dL (0.2-1.0) 10/09/19 05:55 AST 39 IU/L (10-42) 10/09/19 05:55 ALT 35 IU/L (10-60) 10/09/19 05:55 Alkaline Phosphatase 75 IU/L (42-121) 10/09/19 05:55 Total Protein 5.8 g/dL (6.7-8.2) L 10/09/19 05:55 Albumin 1.9 g/dL (3.2-5.5) L 10/09/19 05:55 Globulin 3.9 g/dL (2.1-4.2) 10/09/19 05:55 Albumin/Globulin Ratio 0.5 (1.0-2.2) L 10/09/19 05:55 Lipase 35 U/L (22-51) 10/06/19 11:53 Vitamin B12 589 pg/mL (180-914) 10/07/19 04:25 Folate 12.69 ng/mL (5.90 - >24.8) 10/07/19 04:25 Urine Color YELLOW 10/06/19 14:28 Urine Clarity CLOUDY (CLEAR) 10/06/19 14:28 Urine pH 5.0 PH (5.0-7.5) 10/06/19 14:28 Ur Specific [place] >=1.030 (1.002-1.030) H 10/06/19 14:28 Urine Protein 100 mg/dL (NEGATIVE) H 10/06/19 14:28 Urine Glucose (UA) NEGATIVE mg/dL (NEGATIVE) 10/06/19 14:28 Urine Ketones NEGATIVE mg/dL (NEGATIVE) 10/06/19 14:28 Urine Occult Blood SMALL (NEGATIVE) H 10/06/19 14:28 Urine Nitrite NEGATIVE (NEGATIVE) 10/06/19 14:28 Urine Bilirubin SMALL (NEGATIVE) H 10/06/19 14:28 Urine Urobilinogen 1 (NORMAL) E.U./dL (NORMAL) 10/06/19 14:28 Ur Leukocyte Esterase SMALL (NEGATIVE) H 10/06/19 14:28 Urine RBC 0-5 /HPF (0-5) 10/06/19 14:28 Urine WBC >25 /HPF (0-3) H 10/06/19 14:28 Ur Squamous Epith Cells RARE Squamous (<= Few) 10/06/19 14:28 Amorphous Sediment Few /LPF 10/06/19 14:28 Urine Bacteria Few /HPF (None Seen) 10/06/19 14:28 Urine Casts 0-2 Hyaline Casts /LPF 10/06/19 14:28 Ur Microscopic Review INDICATED 10/06/19 14:28 Urine Culture Comments INDICATED 10/06/19 14:28 Blood Type A POSITIVE 10/06/19 16:39 Blood Type Recheck A POSITIVE 10/06/19 11:53 Antibody Screen NEGATIVE 10/06/19 16:39
[2019-10-11] MEDS: ACETAMINOPHEN 325 MG TABLET PO PRN (23:55)
[2019-10-12] MEDS: AMPICILLIN/SULBACTAM 3 GM in SODIUM CHLORIDE 0.9% MINIBAG 100 ML IV SCH ×3 (05:53→18:34)
[2019-10-12] MEDS: PANTOPRAZOLE 40 MG TABLET PO SCH ×2 (05:53→16:28)
[2019-10-12 06:03] LABS: BASOPHILS % (AUTO) 0.5 %; EOSINOPHILS % (AUTO) 0.1 %; HGB - HEMOGLOBIN 7.3 g/dL (14.0-18.0); LYMPHOCYTES # (AUTO) 0.7 10^3/uL (1.5-3.5); LYMPHOCYTES % (AUTO) 7.7 %; MEAN CORPUSCULAR HEMOGLOBIN 30.9 pg (27.0-31.0); MEAN CORPUSCULAR HGB CONC 30.9 g/dL (32.0-36.0); MEAN PLATELET VOLUME 9.7 fL (7.4-11.4); MONOCYTES # (AUTO) 0.5 10^3/uL (0.0-1.0); MONOCYTES % (AUTO) 5.7 %; NEUTROPHILS # (AUTO) 7.4 10^3/uL (1.5-6.6); NEUTROPHILS % (AUTO) 85.4 %; PLT - PLATELET COUNT 239 10^3/uL (130-450); RED BLOOD COUNT 2.36 10^6/uL (4.70-6.10); RED CELL DISTRIBUTION WIDTH 13.7 % (12.0-15.0); WHITE BLOOD COUNT 8.7 x10^3/uL (4.8-10.8)
[2019-10-12 06:12] LABS: CALCIUM 7.6 mg/dL (8.5-10.3); CREATININE 0.9 mg/dL (0.6-1.2)
[2019-10-12 08:18] LABS: ALBUMIN 1.9 g/dL (3.2-5.5); BILIRUBIN,DIRECT 0.2 mg/dL (0.1-0.5); BILIRUBIN,TOTAL 0.9 mg/dL (0.2-1.0); TOTAL PROTEIN 5.9 g/dL (6.7-8.2)
--- NOTE | 2019-10-12 08:36 | XRAY Report ---
Reason: Desaturatios, fever, eval for pneumonia Procedure Date: 10/12/2019 Accession Number: [id number] / [id number] Procedure: XR - Chest 1 View X-Ray CPT Code: 96172 Final Report FULL RESULT: EXAM: CHEST RADIOGRAPHY EXAM DATE: 10/12/2019 07:52 AM. CLINICAL HISTORY: Desaturations, fever, eval for pneumonia. COMPARISON: CHEST 2 VIEW 10/10/2019 2:05 PM. TECHNIQUE: 1 view. FINDINGS: Lungs/Pleura: Lung volumes are decreased compared to prior. Mild pulmonary vascular congestion is increased. There is increased density of mild patchy opacities at the bilateral lung bases. The previously seen subtle small nodular opacities in the bilateral upper lung zones are not apparent on this exam. No pleural effusion or pneumothorax. Mediastinum: There is stable borderline enlargement of the cardiac silhouette. There is mild atherosclerotic calcification of the aortic arch. Other: No acute osseous abnormality. IMPRESSION: 1. Mild pulmonary vascular congestion appears increased compared to prior. 2. Lung volumes are low, decreased compared to prior. There is increased mild patchy atelectasis or infiltrate at the bilateral lung bases. 3. The previously seen small subtle nodular densities in the bilateral upper lung zones are not apparent on this exam. RADIA
[2019-10-12] MEDS ORDERED: FUROSEMIDE 20 MG/2 ML VIAL IVP STA (08:45)
[2019-10-12] MEDS: FERROUS GLUCONATE 324 MG TABLET PO SCH (08:45)
[2019-10-12] MEDS: SACCHAROMYCES BOULARDII 250 MG CAPSULE PO SCH ×2 (08:45→16:29)
[2019-10-12] MEDS: POTASSIUM CHLOR 10 MEQ/100 ML 10 MEQ/100 ML BAG IV SCH ×3 (08:45→10:57)
[2019-10-12] MEDS: SENNA 8.6 MG TABLET PO SCH (08:45)
[2019-10-12] MEDS: DOCUSATE SODIUM 250 MG CAPSULE PO SCH (08:45)
[2019-10-12] MEDS: polyethylene glycoL 3350 17 GM PACKET PO SCH (09:30)
[2019-10-12] MEDS: SODIUM CHLORIDE FLUSH 0.9% 10 ML SYRINGE IVP SCH ×2 (09:46→16:29)
--- NOTE | 2019-10-12 16:19 | PROVIDER PROGRESS NOTE ---
Assessment/Plan - Problem List (1) FUO (fever of unknown origin) Assessment/Plan: There was yet another fever spike to 38 degrees C last night. The WBC is decreasing from 13 when Unasyn was started to 8.9 and 8.8 He has an appetite, no pain, no rhinorrhea, or cough. Chest x-ray was obtained this morning to look for consolidation, this showed mild vascular congestion and atelectasis. Incentive spirometry was reordered. I called the [facility] line at and again spoke to infectious disease and reviewed the entire course. The infectious disease specialist recommended that he be checked for influenza a and B and he recommended to continue with this present antibiotic which appears to have improved his situation slightly and when he is afebrile to switch him to amoxicillin 875 mg p.o. every 12 hours for 10-day total course from the time the Unasyn was started. The above was discussed with the patient and [id number] who is in the room (2) UTI (urinary tract infection) Qualifiers: Urinary tract infection type: site unspecified Hematuria presence: without hematuria Qualified Code(s): N39.0 - Urinary tract infection, site not specified Assessment/Plan: Continue with plan as above (3) Anemia Qualifiers: Anemia type: iron deficiency Assessment/Plan: EGD negative for bleeding but a hyperemic nodule was biopsied. Colonoscopy negative for bleeding but some polyps were biopsied. Hemoglobin has been between 7 and 8. He is quite fatigued but no transfusions have been given since there are no othe r severe symptoms. He has been on daily p.o. iron since admission, this was discussed with the [id number] in the room Continue to follow CBC daily (4) GI bleed Assessment/Plan: No source was found. We are presuming that his excessive use of Motrin had caused an upper GI source of bleeding which has now stopped, since Hgb has been stable after transfusins given at admission. (5) Elevated INR Assessment/Plan: Presumably due to poor nutrition since he has low serum albumin and protein as well. (6) VIRGINIE (acute kidney injury) Assessment/Plan: Continues to have prerenal azotemia values. IV fluids were stopped today because of the mild vascular congestion on chest x- ray. Follow BMP daily (7) Hypertension Assessment/Plan: Stable BP on current meds (8) Bladder cancer Assessment/Plan: There was extensive discussion with Dr Cano's PA yesterday, which I had repeated for the patiemt and [id number]. There will be a need for outpatient urology visit with Dr. Cano, before the October 26 planned bladder surgery, the [id number] is planning to make an appointment for next week, she told me. (9) Hypokalemia Assessment/Plan: Resolved - Current Meds Current Meds: Current Medications Generic Name Dose Route Start Last Admin Trade Name Freq PRN Reason Stop Dose Admin Acetaminophen 650 mg 10/06/19 17:08 10/11/19 23:55 Tylenol PO 650 mg Q4HR PRN Administration Pain or Fever > 38C (100.4F) Cyclobenzaprine HCl 5 mg 10/06/19 19:41 10/06/19 21:37 Flexeril PO 5 mg TID PRN Administration Spasms Docusate Sodium 250 - 500 mg 10/07/19 09:00 10/12/19 08:45 Colace 250mg Capsule PO 250 mg DAILY CORIN Administration Ferrous Gluconate 324 mg 10/07/19 12:00 10/12/19 08:45 Fergon PO 324 mg DAILYWM CORIN Administration Ampicillin Sodium/Sulbactam 100 mls @ 200 mls/hr 10/10/19 12:00 10/12/19 12:37 Sodium 3 gm/ Sodium Chloride IV Infused Q6HR CORIN Infusion Pantoprazole Sodium 40 mg 10/09/19 21:00 10/12/19 05:53 Protonix PO 40 mg BIDAC CORIN Administration Polyethylene Glycol 17 gm 10/07/19 09:00 10/12/19 09:30 Miralax PO 17 gm DAILY CORIN Administration Saccharomyces Boulardii 250 mg 10/10/19 17:00 10/12/19 08:45 Florastor PO 250 mg BIDWM CORIN Administration Senna 8.6 - 17.2 mg 10/07/19 09:00 10/12/19 08:45 Senokot PO 8.6 mg DAILY CORIN Administration Sodium Chloride 10 ml 10/06/19 17:08 10/06/19 18:48 Normal Saline Flush 0.9% IVP 10 ml PRN PRN Administration NEEDED PER PROVIDER ORDERS Sodium Chloride 10 ml 10/07/19 01:00 10/12/19 09:46 Normal Saline Flush 0.9% IVP Not Given 0100,0900,1700 CORIN - Lab Result Fish Bone Diagrams: 10/12/19 05:52 10/12/19 05:55 - Additional Planning My Orders: My Active Orders 10/13/19 05:00 CBC - COMP BLD CT W/AUTO DIFF [HEME] DAILYLAB CMP [COMPREHENSIVE METABOLIC PANEL] [CHEM] DAILYLAB 10/14/19 05:00 CBC - COMP BLD CT W/AUTO DIFF [HEME] DAILYLAB CMP [COMPREHENSIVE METABOLIC PANEL] [CHEM] DAILYLAB 10/15/19 05:00 CBC - COMP BLD CT W/AUTO DIFF [HEME] DAILYLAB CMP [COMPREHENSIVE METABOLIC PANEL] [CHEM] DAILYLAB 10/12/19 08:45 IS [Incentive Spirometry - RT] [RC] TID Subjective - Subjective Patient Reports: Resting Comfortably, No Complaints Nursing Reports: Other (He had energy to work with PT and OT today.) Objective Vital Signs: Vital Signs - 24 hr 10/11/19 10/11/19 10/12/19 23:45 23:50 00:41 Temperature 38 C H 36.9 C Heart Rate [ 83 Brachial] Heart Rate [ Supine] Respiratory 20 18 Rate Blood Pressure 140/76 H [Right Brachial artery] Blood Pressure [Supine] O2 Saturation 84 L 93 97 10/12/19 10/12/19 10/12/19 07:56 09:47 10:20 Temperature 37.5 C Heart Rate [ 80 Brachial] Heart Rate [ 78 Supine] Respiratory 16 Rate Blood Pressure 142/63 H [Right Brachial artery] Blood Pressure 133/61 H [Supine] O2 Saturation 93 93 10/12/19 15:38 Temperature 37.8 C H Heart Rate [ 80 Brachial] Heart Rate [ Supine] Respiratory 18 Rate Blood Pressure 147/61 H [Right Brachial artery] Blood Pressure [Supine] O2 Saturation 95 Oxygen O2 Source Room air I&O (Last 24 Hrs): Intake and Output Totals x24h 10/10/19 10/11/19 10/12/19 23:59 23:59 23:59 Intake Total 1652.75 7946.545 2416 Output Total 50 Balance 1652.75 1982.761 7038 General: Alert, Other (Pale and fatigued) - Results Results: Laboratory Results WBC 8.7 x10^3/uL (4.8-10.8) 10/12/19 05:52 RBC 2.36 10^6/uL (4.70-6.10) L 10/12/19 05:52 Hgb 7.3 g/dL (14.0-18.0) L 10/12/19 05:52 Hct 23.6 % (42.0-52.0) L 10/12/19 05:52 MCV 100.0 fL (80.0-94.0) H 10/12/19 05:52 MCH 30.9 pg (27.0-31.0) 10/12/19 05:52 MCHC 30.9 g/dL (32.0-36.0) L 10/12/19 05:52 RDW 13.7 % (12.0-15.0) 10/12/19 05:52 Plt Count 239 10^3/uL (130-450) 10/12/19 05:52 MPV 9.7 fL (7.4-11.4) 10/12/19 05:52 Neut # (Auto) 7.4 10^3/uL (1.5-6.6) H 10/12/19 05:52 Lymph # (Auto) 0.7 10^3/uL (1.5-3.5) L 10/12/19 05:52 [place] # (Auto) 0.5 10^3/uL (0.0-1.0) 10/12/19 05:52 Eos # (Auto) 0.0 10^3/uL (0.0-0.7) 10/12/19 05:52 Baso # (Auto) 0.0 10^3/uL (0.0-0.1) 10/12/19 05:52 Absolute Nucleated RBC 0.00 x10^3/uL 10/12/19 05:52 Nucleated RBC % 0.0 /100WBC 10/12/19 05:52 PT 18.7 secs (9.9-12.6) H 10/10/19 04:25 INR 1.7 (0.8-1.2) H 10/10/19 04:25 Whole Blood INR 1.5 (0.8-1.2) H 10/11/19 05:51 Sodium 140 mmol/L (135-145) 10/12/19 05:55 Potassium 3.4 mmol/L (3.5-5.0) L 10/12/19 05:55 Chloride 104 mmol/L (101-111) 10/12/19 05:55 Carbon Dioxide 29 mmol/L (21-32) 10/12/19 05:55 Anion Gap 7.0 (6-13) 10/12/19 05:55 BUN 21 mg/dL (6-20) H 10/12/19 05:55 Creatinine 0.9 mg/dL (0.6-1.2) 10/12/19 05:55 Estimated GFR (MDRD) 80 (>89) L 10/12/19 05:55 Glucose 141 mg/dL (70-100) H 10/12/19 05:55 Lactic Acid 1.4 mmol/L (0.5-2.2) 10/06/19 11:53 Calcium 7.6 mg/dL (8.5-10.3) L 10/12/19 05:55 Magnesium 1.7 mg/dL (1.7-2.8) 10/07/19 04:25 Iron 15 ug/dL (45-182) L 10/07/19 04:25 TIBC 148 ug/dL (250-450) L 10/07/19 04:25 % Saturation 10 % (20-50) L 10/07/19 04:25 Transferrin 106 mg/dL (180-329) L 10/07/19 04:25 Total Bilirubin 0.9 mg/dL (0.2-1.0) 10/12/19 05:53 Direct Bilirubin 0.2 mg/dL (0.1-0.5) 10/12/19 05:53 AST 76 IU/L (10-42) H 10/12/19 05:53 ALT 68 IU/L (10-60) H 10/12/19 05:53 Alkaline Phosphatase 83 IU/L (42-121) 10/12/19 05:53 Total Protein 5.9 g/dL (6.7-8.2) L 10/12/19 05:53 Albumin 1.9 g/dL (3.2-5.5) L 10/12/19 05:53 Globulin 4.0 g/dL (2.1-4.2) 10/12/19 05:53 Albumin/Globulin Ratio 0.5 (1.0-2.2) L 10/09/19 05:55 Lipase 35 U/L (22-51) 10/06/19 11:53 Vitamin B12 589 pg/mL (180-914) 10/07/19 04:25 Folate 12.69 ng/mL (5.90 - >24.8) 10/07/19 04:25 Urine Color YELLOW 10/06/19 14:28 Urine Clarity CLOUDY (CLEAR) 10/06/19 14:28 Urine pH 5.0 PH (5.0-7.5) 10/06/19 14:28 Ur Specific [place] >=1.030 (1.002-1.030) H 10/06/19 14:28 Urine Protein 100 mg/dL (NEGATIVE) H 10/06/19 14:28 Urine Glucose (UA) NEGATIVE mg/dL (NEGATIVE) 10/06/19 14:28 Urine Ketones NEGATIVE mg/dL (NEGATIVE) 10/06/19 14:28 Urine Occult Blood SMALL (NEGATIVE) H 10/06/19 14:28 Urine Nitrite NEGATIVE (NEGATIVE) 10/06/19 14:28 Urine Bilirubin SMALL (NEGATIVE) H 10/06/19 14:28 Urine Urobilinogen 1 (NORMAL) E.U./dL (NORMAL) 10/06/19 14:28 Ur Leukocyte Esterase SMALL (NEGATIVE) H 10/06/19 14:28 Urine RBC 0-5 /HPF (0-5) 10/06/19 14:28 Urine WBC >25 /HPF (0-3) H 10/06/19 14:28 Ur Squamous Epith Cells RARE Squamous (<= Few) 10/06/19 14:28 Amorphous Sediment Few /LPF 10/06/19 14:28 Urine Bacteria Few /HPF (None Seen) 10/06/19 14:28 Urine Casts 0-2 Hyaline Casts /LPF 10/06/19 14:28 Ur Microscopic Review INDICATED 10/06/19 14:28 Urine Culture Comments INDICATED 10/06/19 14:28 Blood Type A POSITIVE 10/06/19 16:39 Blood Type Recheck A POSITIVE 10/06/19 11:53 Antibody Screen NEGATIVE 10/06/19 16:39
[2019-10-12] MEDS: ACETAMINOPHEN 325 MG TABLET PO PRN (16:28)
[2019-10-13] MEDS: AMPICILLIN/SULBACTAM 3 GM in SODIUM CHLORIDE 0.9% MINIBAG 100 ML IV SCH ×4 (01:04→18:18)
[2019-10-13] MEDS: SODIUM CHLORIDE FLUSH 0.9% 10 ML SYRINGE IVP SCH ×3 (01:04→16:55)
[2019-10-13 06:04] LABS: BASOPHILS % (AUTO) 0.4 %; EOSINOPHILS % (AUTO) 0.1 %; LYMPHOCYTES # (AUTO) 0.7 10^3/uL (1.5-3.5); LYMPHOCYTES % (AUTO) 8.9 %; MEAN CORPUSCULAR HEMOGLOBIN 30.7 pg (27.0-31.0); MEAN CORPUSCULAR HGB CONC 31.6 g/dL (32.0-36.0); MEAN CORPUSCULAR VOLUME 97.2 fL (80.0-94.0); MEAN PLATELET VOLUME 9.9 fL (7.4-11.4); MONOCYTES # (AUTO) 0.5 10^3/uL (0.0-1.0); NEUTROPHILS # (AUTO) 6.6 10^3/uL (1.5-6.6); NEUTROPHILS % (AUTO) 84.1 %; PLT - PLATELET COUNT 239 10^3/uL (130-450); RED BLOOD COUNT 2.15 10^6/uL (4.70-6.10); RED CELL DISTRIBUTION WIDTH 13.7 % (12.0-15.0); WHITE BLOOD COUNT 7.9 x10^3/uL (4.8-10.8)
[2019-10-13] MEDS: PANTOPRAZOLE 40 MG TABLET PO SCH ×2 (06:06→16:55)
[2019-10-13 06:11] LABS: HGB - HEMOGLOBIN 6.6 g/dL (14.0-18.0)
[2019-10-13 06:16] LABS: ALBUMIN 1.8 g/dL (3.2-5.5); ALBUMIN/GLOBULIN RATIO 0.5 (1.0-2.2); BILIRUBIN,TOTAL 0.6 mg/dL (0.2-1.0); CALCIUM 7.5 mg/dL (8.5-10.3); CREATININE 0.9 mg/dL (0.6-1.2); TOTAL PROTEIN 5.7 g/dL (6.7-8.2)
[2019-10-13 07:23] LABS: DIFFERENTIAL COMMENT MANUAL=AUTO DIFF; PLATELET ESTIMATE, MANUAL NORMAL (130-450,000) (NORMAL); RBC MORPHOLOGY (MULTIPLE) 1+ HYPOCHROMASIA (NORMAL)
--- NOTE | 2019-10-13 07:53 | PROVIDER PROGRESS NOTE ---
Assessment/Plan - Problem List (1) FUO (fever of unknown origin) Assessment/Plan: Patient again had a spike of a high fever to 39.1 at 1500 this afternoon. Prior to this, most of his fever spikes were at midnight, after the first days prolonged fever which lasted 6 hours or so. This morning's chest x-ray did not show an infiltrate. The CT scan of the abdomen several days ago had the enlarged and new lymph nodes but no abscesses or other problems. I have now spoken to 2 Infectious Disease specialists from [facility] on the [id number] phone line and reviewed his case in detail including the type of antibiotics and management. Since he by definition has FUO, I offered the patient to be transferred to [facility] where specialists are in the building and the patient is agreeable to transfer. I will reach out for getting him transferred to a higher level of care hospital, preferably [facility], where his Urologist Dr Cano sees him. (2) UTI (urinary tract infection) Qualifiers: Urinary tract infection type: site unspecified Hematuria presence: without hematuria Qualified Code(s): N39.0 - Urinary tract infection, site not specified Assessment/Plan: The positive urine culture from before this hospitalization grew out Enterococcus and Aerococcus, the Aerococcuas was not sensitive to Cipro, therefore is was felt he was undertreated, as the cause of fever and chills and required this admission. He was first put on iv Ceftriaxone for 2 days and had continued fevers and a rising white count, he was then changed to Unasyn which have given improvement in white blood count. No urine or blood cultures are positive from this admission. (3) Hypoxia Assessment/Plan: His O2 dropped several days ago. Yesterday, the CXR showed mild fluid overload. The saline going at [facility] was stopped, and 1 dose of Lasix iv was given. Today he still is hypoxic on room air. Will recheck CXR and a BNP Will obtain Echo in a.m. (the Echo service is not available today since it is a holiday 10/13/19). (4) Elevated LFTs Assessment/Plan: The presumed cause is passive liver congestion, since bilirubin is normal, CT abdomen showed no pancreas, GB or acute liver findings and he is about 10L positive in fluid balance since admission. saline hydration at [facility] was stopped yesterday and he got iv lasix yesterday and today. Follow LFTs. (5) Anemia Qualifiers: Anemia type: iron deficiency Assessment/Plan: Hemoglobin dropped to below 7 at 6.6 and he did get 1 unit of blood transfused today. Hemodilution with 10 L positive fluid status is partly the cause. Follow CBC daily 12 hours and every morning. He already has completed a work-up for GI blood loss anemia except for small bowel evaluation. There are no black or bloody stools. Continue daily oral iron replacement (6) GI bleed Assessment/Plan: Heme (+) stools documented at admission, EGD and colonoscopy this admission showed no active bleeding. (7) Elevated INR Assessment/Plan: This was a sign of his abnormal liver function at admission (8) Hypertension Assessment/Plan: Stable or mildly elevated BP on current meds. His home med for HTN was only HCTZ. here he has gotten iv Lasix fr the past 2 days. Will start Amlodipine for BP control. (9) Bladder cancer Assessment/Plan: I have spoken to his primary urologist, Dr. Nina Tapia's office who said that they turned over the case to Dr. Cano. I spoke to the PA at Dr. 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 Follow BMP daily, since he needed Lasix (11) VIRGINIE (acute kidney injury) Assessment/Plan: Resolved - Current Meds Current Meds: Current Medications Generic Name Dose Route Start Last Admin Trade Name Freq PRN Reason Stop Dose Admin Acetaminophen 650 mg 10/06/19 17:08 10/12/19 16:28 Tylenol PO 650 mg Q4HR PRN Administration Pain or Fever > 38C (100.4F) Cyclobenzaprine HCl 5 mg 10/06/19 19:41 10/06/19 21:37 Flexeril PO 5 mg TID PRN Administration Spasms Docusate Sodium 250 - 500 mg 10/07/19 09:00 10/12/19 08:45 Colace 250mg Capsule PO 250 mg DAILY CORIN Administration Ferrous Gluconate 324 mg 10/07/19 12:00 10/12/19 08:45 Fergon PO 324 mg DAILYWM CORIN Administration Ampicillin Sodium/Sulbactam 100 mls @ 200 mls/hr 10/10/19 12:00 10/13/19 06:07 Sodium 3 gm/ Sodium Chloride IV Infused Q6HR CORIN Infusion Pantoprazole Sodium 40 mg 10/09/19 21:00 10/13/19 06:06 Protonix PO 40 mg BIDAC CORIN Administration Polyethylene Glycol 17 gm 10/07/19 09:00 10/12/19 09:30 Miralax PO 17 gm DAILY CORIN Administration Saccharomyces Boulardii 250 mg 10/10/19 17:00 10/12/19 16:29 Florastor PO 250 mg BIDWM CORIN Administration Senna 8.6 - 17.2 mg 10/07/19 09:00 10/12/19 08:45 Senokot PO 8.6 mg DAILY CORIN Administration Sodium Chloride 10 ml 10/06/19 17:08 10/06/19 18:48 Normal Saline Flush 0.9% IVP 10 ml PRN PRN Administration NEEDED PER PROVIDER ORDERS Sodium Chloride 10 ml 10/07/19 01:00 10/13/19 01:04 Normal Saline Flush 0.9% IVP 10 ml 0100,0900,1700 CORIN Administration - Lab Result Fish Bone Diagrams: 10/13/19 05:50 10/13/19 05:50 - Additional Planning My Orders: My Active Orders 10/14/19 05:00 CBC - COMP BLD CT W/AUTO DIFF [HEME] DAILYLAB CMP [COMPREHENSIVE METABOLIC PANEL] [CHEM] DAILYLAB 10/15/19 05:00 CBC - COMP BLD CT W/AUTO DIFF [HEME] DAILYLAB CMP [COMPREHENSIVE METABOLIC PANEL] [CHEM] DAILYLAB 10/12/19 08:45 IS [Incentive Spirometry - RT] [RC] TID Objective Vital Signs: Vital Signs - 24 hr 10/12/19 10/12/19 10/12/19 07:56 09:47 10:20 Temperature 37.5 C Heart Rate [ 80 Brachial] Heart Rate [ 78 Supine] Respiratory 16 Rate Blood Pressure 142/63 H [Right Brachial artery] Blood Pressure 133/61 H [Supine] O2 Saturation 93 93 10/12/19 10/12/19 10/12/19 15:38 17:30 23:25 Temperature 37.8 C H 36.8 C 37.7 C H Heart Rate [ 80 87 Brachial] Heart Rate [ Supine] Respiratory 18 18 Rate Blood Pressure 147/61 H 155/64 H [Right Brachial artery] Blood Pressure [Supine] O2 Saturation 95 80 L 10/12/19 23:37 Temperature Heart Rate [ Brachial] Heart Rate [ Supine] Respiratory Rate Blood Pressure [Right Brachial artery] Blood Pressure [Supine] O2 Saturation 91 L Oxygen O2 Source Nasal cannula I&O (Last 24 Hrs): Intake and Output Totals x24h 10/11/19 10/12/19 10/13/19 23:59 23:59 23:59 Intake Total 2409.748 5790 600 Output Total 50 50 Balance 3238.256 2042 600 General: Alert, Other (Fatigued and sleeping most of day) HEENT: Mucous membr. moist/pink Neck: Supple, No JVD Neuro: Alert, Non Focal Cardiovascular: Regular rate, No murmurs Respiratory: No respiratory distress, Rales Abdomen: Normal bowel sounds, Soft Extremities: No edema - Results Results: Laboratory Results WBC 7.9 x10^3/uL (4.8-10.8) 10/13/19 05:50 RBC 2.15 10^6/uL (4.70-6.10) L 10/13/19 05:50 Hgb 6.6 g/dL (14.0-18.0) L* 10/13/19 05:50 Hct 20.9 % (42.0-52.0) L 10/13/19 05:50 MCV 97.2 fL (80.0-94.0) H 10/13/19 05:50 MCH 30.7 pg (27.0-31.0) 10/13/19 05:50 MCHC 31.6 g/dL (32.0-36.0) L 10/13/19 05:50 RDW 13.7 % (12.0-15.0) 10/13/19 05:50 Plt Count 239 10^3/uL (130-450) 10/13/19 05:50 MPV 9.9 fL (7.4-11.4) 10/13/19 05:50 Neut # (Auto) 6.6 10^3/uL (1.5-6.6) 10/13/19 05:50 Lymph # (Auto) 0.7 10^3/uL (1.5-3.5) L 10/13/19 05:50 [place] # (Auto) 0.5 10^3/uL (0.0-1.0) 10/13/19 05:50 Eos # (Auto) 0.0 10^3/uL (0.0-0.7) 10/13/19 05:50 Baso # (Auto) 0.0 10^3/uL (0.0-0.1) 10/13/19 05:50 Absolute Nucleated RBC 0.00 x10^3/uL 10/13/19 05:50 Band Neuts % (Manual) Not Reportable 10/13/19 05:50 Abnorm Lymph % (Manual) Not Reportable 10/13/19 05:50 Nucleated RBC % 0.0 /100WBC 10/13/19 05:50 Neutrophils # (Manual) Not Reportable 10/13/19 05:50 Lymphocytes # (Manual) Not Reportable 10/13/19 05:50 Monocytes # (Manual) Not Reportable 10/13/19 05:50 Eosinophils # (Manual) Not Reportable 10/13/19 05:50 Basophils # (Manual) Not Reportable 10/13/19 05:50 Differential Comment MANUAL=AUTO DIFF 10/13/19 05:50 Platelet Estimate NORMAL (130-450,000) (NORMAL) 10/13/19 05:50 RBC Morph Micro Appear 1+ HYPOCHROMASIA (NORMAL) 10/13/19 05:50 PT 18.7 secs (9.9-12.6) H 10/10/19 04:25 INR 1.7 (0.8-1.2) H 10/10/19 04:25 Whole Blood INR 1.5 (0.8-1.2) H 10/11/19 05:51 Sodium 137 mmol/L (135-145) 10/13/19 05:50 Potassium 3.5 mmol/L (3.5-5.0) 10/13/19 05:50 Chloride 101 mmol/L (101-111) 10/13/19 05:50 Carbon Dioxide 28 mmol/L (21-32) 10/13/19 05:50 Anion Gap 8.0 (6-13) 10/13/19 05:50 BUN 20 mg/dL (6-20) 10/13/19 05:50 Creatinine 0.9 mg/dL (0.6-1.2) 10/13/19 05:50 Estimated GFR (MDRD) 80 (>89) L 10/13/19 05:50 Glucose 129 mg/dL (70-100) H 10/13/19 05:50 Lactic Acid 1.4 mmol/L (0.5-2.2) 10/06/19 11:53 Calcium 7.5 mg/dL (8.5-10.3) L 10/13/19 05:50 Magnesium 1.7 mg/dL (1.7-2.8) 10/07/19 04:25 Iron 15 ug/dL (45-182) L 10/07/19 04:25 TIBC 148 ug/dL (250-450) L 10/07/19 04:25 % Saturation 10 % (20-50) L 10/07/19 04:25 Transferrin 106 mg/dL (180-329) L 10/07/19 04:25 Total Bilirubin 0.6 mg/dL (0.2-1.0) 10/13/19 05:50 Direct Bilirubin 0.2 mg/dL (0.1-0.5) 10/12/19 05:53 AST 80 IU/L (10-42) H 10/13/19 05:50 ALT 69 IU/L (10-60) H 10/13/19 05:50 Alkaline Phosphatase 81 IU/L (42-121) 10/13/19 05:50 Total Protein 5.7 g/dL (6.7-8.2) L 10/13/19 05:50 Albumin 1.8 g/dL (3.2-5.5) L 10/13/19 05:50 Globulin 3.9 g/dL (2.1-4.2) 10/13/19 05:50 Albumin/Globulin Ratio 0.5 (1.0-2.2) L 10/13/19 05:50 Lipase 35 U/L (22-51) 10/06/19 11:53 Vitamin B12 589 pg/mL (180-914) 10/07/19 04:25 Folate 12.69 ng/mL (5.90 - >24.8) 10/07/19 04:25 Urine Color YELLOW 10/06/19 14:28 Urine Clarity CLOUDY (CLEAR) 10/06/19 14:28 Urine pH 5.0 PH (5.0-7.5) 10/06/19 14:28 Ur Specific [place] >=1.030 (1.002-1.030) H 10/06/19 14:28 Urine Protein 100 mg/dL (NEGATIVE) H 10/06/19 14:28 Urine Glucose (UA) NEGATIVE mg/dL (NEGATIVE) 10/06/19 14:28 Urine Ketones NEGATIVE mg/dL (NEGATIVE) 10/06/19 14:28 Urine Occult Blood SMALL (NEGATIVE) H 10/06/19 14:28 Urine Nitrite NEGATIVE (NEGATIVE) 10/06/19 14:28 Urine Bilirubin SMALL (NEGATIVE) H 10/06/19 14:28 Urine Urobilinogen 1 (NORMAL) E.U./dL (NORMAL) 10/06/19 14:28 Ur Leukocyte Esterase SMALL (NEGATIVE) H 10/06/19 14:28 Urine RBC 0-5 /HPF (0-5) 10/06/19 14:28 Urine WBC >25 /HPF (0-3) H 10/06/19 14:28 Ur Squamous Epith Cells RARE Squamous (<= Few) 10/06/19 14:28 Amorphous Sediment Few /LPF 10/06/19 14:28 Urine Bacteria Few /HPF (None Seen) 10/06/19 14:28 Urine Casts 0-2 Hyaline Casts /LPF 10/06/19 14:28 Ur Microscopic Review INDICATED 10/06/19 14:28 Urine Culture Comments INDICATED 10/06/19 14:28 Influenza A (Rapid) Negative (Negative) 10/12/19 16:50 Influenza B (Rapid) Negative (Negative) 10/12/19 16:50 Blood Type A POSITIVE 10/06/19 16:39 Blood Type Recheck A POSITIVE 10/06/19 11:53 Antibody Screen NEGATIVE 10/06/19 16:39
[2019-10-13] MEDS ORDERED: FUROSEMIDE 20 MG/2 ML VIAL IVP PRN (08:00)
[2019-10-13] MEDS: FERROUS GLUCONATE 324 MG TABLET PO SCH (09:18)
[2019-10-13] MEDS: SENNA 8.6 MG TABLET PO SCH (09:18)
[2019-10-13] MEDS: SACCHAROMYCES BOULARDII 250 MG CAPSULE PO SCH ×2 (09:18→16:55)
[2019-10-13] MEDS: DOCUSATE SODIUM 250 MG CAPSULE PO SCH (09:18)
[2019-10-13] MEDS: polyethylene glycoL 3350 17 GM PACKET PO SCH (09:18)
--- NOTE | 2019-10-13 10:57 | XRAY Report ---
Reason: Hypoxia, eval for CHF Procedure Date: 10/13/2019 Accession Number: [id number] / [id number] Procedure: XR - Chest 1 View X-Ray CPT Code: 70815 Final Report FULL RESULT: EXAM: CHEST RADIOGRAPHY EXAM DATE: 10/13/2019 08:34 AM. CLINICAL HISTORY: Hypoxia, eval for CHF. COMPARISON: CHEST 1 VIEW 10/12/2019 7:52 AM CHEST 2 VIEW 10/10/2019 2:05 PM. TECHNIQUE: 1 view. FINDINGS: Lungs/Pleura: Patchy opacities bilateral lung bases, stable. No pleural effusion. No pneumothorax. Mediastinum: Borderline cardiomegaly. Mild pulmonary vascular congestion, stable. Other: None. IMPRESSION: Mild pulmonary vasculature congestion and patchy opacities at lung bases, stable when compared to 10/12/19. RADIA
[2019-10-13] MEDS ORDERED: PROPOFOL 200 MG/20 ML VIAL IVP ONE (14:23)
[2019-10-13] MEDS ORDERED: fentaNYL 100 MCG/2 ML VIAL IVP ONE (14:23)
[2019-10-13] MEDS: ACETAMINOPHEN 325 MG TABLET PO PRN (16:55)
[2019-10-13 19:14] LABS: HGB - HEMOGLOBIN 7.1 g/dL (14.0-18.0)
[2019-10-14] MEDS: SODIUM CHLORIDE FLUSH 0.9% 10 ML SYRINGE IVP SCH (00:20)
[2019-10-14] MEDS: AMPICILLIN/SULBACTAM 3 GM in SODIUM CHLORIDE 0.9% MINIBAG 100 ML IV SCH (00:23)
[2019-10-14] MEDS: ACETAMINOPHEN 325 MG TABLET PO PRN (00:23)
[2019-10-14] MEDS ORDERED: FUROSEMIDE 40 MG/4 ML VIAL IVP STA (00:36)
[2019-10-14] MEDS: SODIUM CHLORIDE FLUSH 0.9% 10 ML SYRINGE IVP PRN (00:53)
--- NOTE | 2019-10-14 01:37 | DISCHARGE SUMMARY ---
"Discharge Summary Admit Date: 10/06/19 Discharge Date: 10/14/19 Discharging Provider: Sloan Charles Primary Care Provider: Dara Sabillon Code Status: Attempt Resuscitation Condition at Discharge: Stable Discharge Disposition: Transfer Acute Care Hosp Discharge Facility Name: [facility] - DIAGNOSES Admission Diagnoses: UTI Anemia GI bleed Hypertension Hypokalemia Acute kidney injury Bladder cancer Discharge Diagnoses with Status of Each Condition: Fever - He has been spiking daily fevers except on October 12. His highest temperature has been 39 C which occurred on October 13 at 4 PM. This did occur approximately 3 hours after receiving a blood transfusion for his anemia. He did spike another temperature prior to transfer to [facility] at midnight on October 14 with a temperature of 38.6C. He had a chest x-ray the morning of the first which did not show an infiltrate but did show pulmonary vascular congestion. A CT of the abdomen and pelvis with contrast of days ago had enlarged and lymph nodes but no abscesses. The gallbladder appeared unremarkable. Influenza was checked and this was negative. The daytime provider spoke with 2 different infectious disease specialists over the past few days to discuss the case. Given that the patient has remained febrile without a clear source except for the initial urinary tract infection, he will be transferred to [facility] for further evaluation as he requires infectious disease and oncology input. He was graciously accepted by Dr. Cruz of the hospitalist service. Urinary tract infection - Initial cultures before hospitalization grew enterococcus and Aerococcus but the Aerococcus was not sensitive to c iprofloxacin. He was started on ceftriaxone initially but he continued to become febrile with an increasing white count. He was then transitioned to Unasyn on October 10 and his white count has since resolved. Unfortunately he remains persistently febrile. Repeat urine cultures during this ho spitalization have been negative. His initial urinalysis did reveal small leukocyte esterase and over 25 WBCs but few bacteria. Blood cultures have also been negative. Hypoxia - He is requiring 2 to 3 L of oxygen via nasal cannula for the past few days. A repeat chest x-ray the morning of October 13 revealed pulmonary vascular congestion. BNP was checked and it was elevated at 218. Unfortunately, we did not have echocardiogram available over the past few days but he was scheduled to get one the day of transfer. He has since been started on IV Lasix and his IV fluids have been discontinued. Elevated LFTs - His LFTs are on admission with an AST of 52 and ALT of 41. They have slightly increased since hospitalization and AST is now 80 and ALT is 69. Total bilirubin is 0.6 and alkaline phosphatase is 81. His initial LFT elevation was thought to be secondary to alcohol use he drinks 1-2 drinks a day. The elevated now is felt to be secondary to passive liver congestion given the amount of IV fluids he initially received during the hospitalization. Anemia - Presented with a hemoglobin of 7.7 and prior labs revealed a baseline around 12-13. His stool occult was positive for blood. He underwent an EGD and colonoscopy which did not reveal an active source of bleeding. His hemoglobin has slowly trended down throughout this hospitalization and on October 13 it dropped to 6.6. He was transfused 1 unit of packed red blood cells with improvement in his hemoglobin to 7.1. He has no evidence of blood in his stool at this time. He is on oral iron supplementation. GI bleed - He had heme positive stool on admission. Colonoscopy showed 4 polyps which were resected but no active bleeding was evident and no obvious source of major bleeding. Endoscopy showed a mass measuring 3 mm in size located in the first part of the duodenum. There was no evidence of active bleeding. Elevated INR - His INR was elevated at 1.8 on admission and it was last checked on the 11 October and it had decreased to 1.5. This was attributed to abnormal liver function. CT the abdomen and pelvis showed a fatty liver but there were no masses or cysts. Hypertension - He is on hydrochlorothiazide at home and he has been becoming more hypertensive. He was started on amlodipine 2.5 mg daily in addition to the IV Lasix he is receiving for the pulmonary vascular congestion. Bladder cancer - Follows with at [facility]. Pathology had revealed urothelial cancer which was high-grade. - HPI History of Present Illness: H&P per Dr. Barnes on 09/26/19: Patient is an 89 y/o male who presented to the ED with complain of not feeling well for the past 3-4 weeks. He was initially seen in the ED in the beginning of August for removal of a khoury catheter. He returned 1 week ago because he was still not feeling well. He was found to have a UTI and given a 5-day course of Cipro. He was also advised to return if there was no improvement thus leading to his return. On further review it was found that 2 bacteria grew from the urine culture E. faecalis and Aerococcus urinae. Aerococcus was not sensitive to Cipro. He was also found to have a hemoglobin of 7.7. On August 10 2019, it was 12.6. He denies dark tarry stools, coffee ground emesis or any traumatic event from which he would have bled profusely. He last had a colonoscopy 8-9 yrs ago, during which a polyp was found. He denied chest pain, dyspnea, abd pain, n/v/d. He reports back spasm. He has been diagnosed with bladder cancer and is schedule to follow up with [facility] for further treatment. - CONSULTS | PROCEDURES Consultations: General Surgery Procedures: EGD and Colonoscopy. - HOSPITAL COURSE Hospital Course: Please see discharge diagnoses above. - ALLERGIES Allergies/Adverse Reactions: Allergies Allergy/AdvReac Type Severity Reaction Status Date / Time No Known Drug Allergies Allergy Verified 09/30/19 13:29 - MEDICATIONS Home Medications: Ambulatory Orders Medication Instructions Recorded Confirmed Hydrochlorothiazide 12.5 mg PO DAILY 12/14/17 10/08/19 Omeprazole 20 mg PO DAILY 12/14/17 10/08/19 - PHYSICAL EXAM AT DISCHARGE General Appearance: positive: No acute distress, Alert Eyes Bilateral: positive: Normal inspection ENT: positive: ENT inspection nml, Other (Nasal cannula in place.) Neck: positive: Nml inspection Respiratory: positive: No respiratory distress, Other (Diminished breath sounds with rales present.) Cardiovascular: positive: Regular rate & rhythm, No murmur. negative: Tachycardia, Bradycardia, Systolic murmur, Diastolic murmur Abdomen: positive: Non-tender, No distention. negative: Tenderness, Guarding, Rebound Skin: positive: No rash, Warm, Dry Extremities: positive: Full ROM, No pedal edema Neurologic/Psychiatric: positive: Oriented x3. negative: Disoriented to person, Disoriented to place, Disoriented to time, Weakness - LABS Result Diagrams: 10/14/19 04:45 10/14/19 04:45 - DIAGNOSTIC IMAGING Diagnostic Imaging Results: Final report reviewed Diagnostic Imaging Results Comments: Active Medications Acetaminophen (Tylenol) 650 mg PO Q4HR PRN PRN Reason: Pain or Fever > 38C (100.4F) Last Admin: 10/14/19 00:23 Dose: 650 mg Amlodipine Besylate (Norvasc) 2.5 mg PO DAILY [facility] Cyclobenzaprine HCl (Flexeril) 5 mg PO TID PRN PRN Reason: Spasms Last Admin: 10/06/19 21:37 Dose: 5 mg Docusate Sodium (Colace 250mg Capsule) 250 - 500 mg PO DAILY [facility] Last Admin: 10/13/19 09:18 Dose: 250 mg Ferrous Gluconate (Fergon) 324 mg PO DAILYWM [facility] Last Admin: 10/13/19 09:18 Dose: 324 mg Furosemide (Lasix Inj 20mg Vial) 20 mg IVP ONCE PRN PRN Reason: NEEDED PER PROVIDER ORDERS Stop: 10/14/19 07:59 Hydralazine HCl (Apresoline Inj) 10 mg IVP Q6H PRN PRN Reason: PER PHYSICIAN ORDER Ampicillin Sodium/Sulbactam (Sodium 3 gm/ Sodium Chloride) 100 mls @ 200 mls/hr IV Q6HR [facility] Last Infusion: 10/14/19 01:21 Dose: Infused Ondansetron HCl (Zofran Inj) 4 mg IVP Q6HR PRN PRN Reason: Nausea / Vomiting Pantoprazole Sodium (Protonix) 40 mg PO BIDAC [facility] Last Admin: 10/13/19 16:55 Dose: 40 mg Polyethylene Glycol (Miralax) 17 gm PO DAILY [facility] Last Admin: 10/13/19 09:18 Dose: Not Given Saccharomyces Boulardii (Florastor) 250 mg PO BIDWM [facility] Last Admin: 10/13/19 16:55 Dose: 250 mg Senna (Senokot) 8.6 - 17.2 mg PO DAILY [facility] Last Admin: 10/13/19 09:18 Dose: 8.6 mg Sodium Chloride (Normal Saline Flush 0.9%) 10 ml IVP PRN PRN PRN Reason: NEEDED PER PROVIDER ORDERS Last Admin: 10/14/19 00:53 Dose: 10 ml Sodium Chloride (Normal Saline Flush 0.9%) 10 ml IVP 0100,0900,1700 [facility] Last Admin: 10/14/19 00:20 Dose: 10 ml Hydrochlorothiazide 12.5 mg PO DAILY 12/14/17 Omeprazole 20 mg PO DAILY 12/14/17 Microbiology 10/07/19 08:30 Blood - Left Arm Blood Culture - Final NO GROWTH AFTER 5 DAYS 10/06/19 12:48 Blood Blood Culture - Final NO GROWTH AFTER 5 DAYS 10/06/19 11:53 Blood Blood Culture - Final NO GROWTH AFTER 5 DAYS 10/06/19 14:28 Urine,Clean Catch Urine Culture - Final NO AEROBIC GROWTH AT 24 HOURS 10/06/19 15:54 Stool Occult Blood - Final Lab Results x24hrs 10/13/19 10/13/19 10/13/19 19:16 18:56 07:32 WBC RBC Hgb 7.1 g/dL L g/dL (14.0-18.0) Hct 22.3 % L % (42.0-52.0) MCV MCH MCHC RDW Plt Count MPV Neut # (Auto) Lymph # (Auto) [place] # (Auto) Eos # (Auto) Baso # (Auto) Absolute Nucleated RBC Band Neuts % (Manual) Abnorm Lymph % (Manual) Nucleated RBC % Neutrophils # (Manual) Lymphocytes # (Manual) Monocytes # (Manual) Eosinophils # (Manual) Basophils # (Manual) Differential Comment Platelet Estimate RBC Morph Micro Appear Sodium Potassium Chloride Carbon Dioxide Anion Gap BUN Creatinine Estimated GFR (MDRD) Glucose Lactic Acid 1.2 mmol/L mmol/L (0.5-2.2) Calcium Total Bilirubin AST ALT Alkaline Phosphatase B-Natriuretic Peptide Total Protein Albumin Globulin Albumin/Globulin Ratio Blood Type A POSITIVE Antibody Screen NEGATIVE Crossmatch IS Only See Detail 10/13/19 10/13/19 10/13/19 05:50 05:50 05:50 WBC 7.9 x10^3/uL x10^3/uL (4.8-10.8) RBC 2.15 10^6/uL L 10^6/uL (4.70-6.10) Hgb 6.6 g/dL L* g/dL (14.0-18.0) Hct 20.9 % L % (42.0-52.0) MCV 97.2 fL H fL (80.0-94.0) MCH 30.7 pg pg (27.0-31.0) MCHC 31.6 g/dL L g/dL (32.0-36.0) RDW 13.7 % % (12.0-15.0) Plt Count 239 10^3/uL 10^3/uL (130-450) MPV 9.9 fL fL (7.4-11.4) Neut # (Auto) 6.6 10^3/uL 10^3/uL (1.5-6.6) Lymph # (Auto) 0.7 10^3/uL L 10^3/uL (1.5-3.5) [place] # (Auto) 0.5 10^3/uL 10^3/uL (0.0-1.0) Eos # (Auto) 0.0 10^3/uL 10^3/uL (0.0-0.7) Baso # (Auto) 0.0 10^3/uL 10^3/uL (0.0-0.1) Absolute Nucleated RBC 0.00 x10^3/uL x10^3/uL Band Neuts % (Manual) Not Reportable Abnorm Lymph % (Manual) Not Reportable Nucleated RBC % 0.0 /100WBC /100WBC Neutrophils # (Manual) Not Reportable Lymphocytes # (Manual) Not Reportable Monocytes # (Manual) Not Reportable Eosinophils # (Manual) Not Reportable Basophils # (Manual) Not Reportable Differential Comment MANUAL=AUTO DIFF Platelet Estimate NORMAL (130-450,000) (NORMAL) RBC Morph Micro Appear 1+ HYPOCHROMASIA (NORMAL) Sodium 137 mmol/L mmol/L (135-145) Potassium 3.5 mmol/L mmol/L (3.5-5.0) Chloride 101 mmol/L mmol/L (101-111) Carbon Dioxide 28 mmol/L mmol/L (21-32) Anion Gap 8.0 (6-13) BUN 20 mg/dL mg/dL (6-20) Creatinine 0.9 mg/dL mg/dL (0.6-1.2) Estimated GFR (MDRD) 80 L (>89) Glucose 129 mg/dL H mg/dL (70-100) Lactic Acid Calcium 7.5 mg/dL L mg/dL (8.5-10.3) Total Bilirubin 0.6 mg/dL mg/dL (0.2-1.0) AST 80 IU/L H IU/L (10-42) ALT 69 IU/L H IU/L (10-60) Alkaline Phosphatase 81 IU/L IU/L (42-121) B-Natriuretic Peptide 218 pg/mL H pg/mL (5-100) Total Protein 5.7 g/dL L g/dL (6.7-8.2) Albumin 1.8 g/dL L g/dL (3.2-5.5) Globulin 3.9 g/dL g/dL (2.1-4.2) Albumin/Globulin Ratio 0.5 L (1.0-2.2) Blood Type Antibody Screen Crossmatch IS Only - TIME SPENT Time Spent in Discharge (Minutes): 45"
[2019-10-14 05:06] LABS: BASOPHILS % (AUTO) 0.3 %; EOSINOPHILS % (AUTO) 0.1 %; HGB - HEMOGLOBIN 8.2 g/dL (14.0-18.0); LYMPHOCYTES # (AUTO) 0.8 10^3/uL (1.5-3.5); LYMPHOCYTES % (AUTO) 7.1 %; MEAN CORPUSCULAR HEMOGLOBIN 30.7 pg (27.0-31.0); MEAN CORPUSCULAR HGB CONC 31.5 g/dL (32.0-36.0); MEAN CORPUSCULAR VOLUME 97.4 fL (80.0-94.0); MEAN PLATELET VOLUME 11.3 fL (7.4-11.4); MONOCYTES # (AUTO) 0.8 10^3/uL (0.0-1.0); MONOCYTES % (AUTO) 6.6 %; NEUTROPHILS % (AUTO) 85.1 %; PLT - PLATELET COUNT 189 10^3/uL (130-450); RED BLOOD COUNT 2.67 10^6/uL (4.70-6.10); RED CELL DISTRIBUTION WIDTH 14.1 % (12.0-15.0); WHITE BLOOD COUNT 11.8 x10^3/uL (4.8-10.8)
[2019-10-14 05:18] LABS: ALBUMIN 1.9 g/dL (3.2-5.5); ALBUMIN/GLOBULIN RATIO 0.5 (1.0-2.2); BILIRUBIN,TOTAL 1.2 mg/dL (0.2-1.0); CALCIUM 7.6 mg/dL (8.5-10.3); CREATININE 0.9 mg/dL (0.6-1.2); TOTAL PROTEIN 5.8 g/dL (6.7-8.2)
[2019-10-14 05:33] LABS: PLATELET ESTIMATE, MANUAL NORMAL (130-450,000) (NORMAL)
[2019-10-14 06:08] VITALS: BP 155/65
[2019-10-14] MEDS ORDERED: amLODIPine 5 MG TABLET PO SCH (09:00)
== END 2019-10-14 05:48 | disposition short-term general hospital (02) | DRG 683 ==
LOC: ED 10:09 → MS2 17:08
PROVIDERS: ADMIT Internal Medicine; ATTEND Internal Medicine
PROC: 30233N1 Transfusion of Nonautologous Red Blood Cells into Peripheral Vein, Percutaneous Approach (ICD-10-PCS; 2019-10-06)
PROC: 0DB98ZX Excision of Duodenum, Via Natural or Artificial Opening Endoscopic, Diagnostic (ICD-10-PCS; principal; 2019-10-10 10:00)
PROC: 0DBK8ZZ Excision of Ascending Colon, Via Natural or Artificial Opening Endoscopic (ICD-10-PCS; 2019-10-11)
PROC: 0DBL8ZZ Excision of Transverse Colon, Via Natural or Artificial Opening Endoscopic (ICD-10-PCS; 2019-10-11)
DX: D64.9 Anemia, unspecified (principal); R19.5 Other fecal abnormalities; N17.9 Acute kidney failure, unspecified; N39.0 Urinary tract infection, site not specified; K92.1 Melena; R59.0 Localized enlarged lymph nodes; M79.89 Other specified soft tissue disorders; R39.11 Hesitancy of micturition; E87.6 Hypokalemia; Z92.3 Personal history of irradiation; R50.9 Fever, unspecified; B96.89 Other specified bacterial agents as the cause of diseases classified elsewhere; D50.0 Iron deficiency anemia secondary to blood loss (chronic); C67.9 Malignant neoplasm of bladder, unspecified; R09.02 Hypoxemia; R59.1 Generalized enlarged lymph nodes; K31.9 Disease of stomach and duodenum, unspecified; D12.2 Benign neoplasm of ascending colon; D12.3 Benign neoplasm of transverse colon; K21.9 Gastro-esophageal reflux disease without esophagitis; R09.89 Other specified symptoms and signs involving the circulatory and respiratory systems; E87.70 Fluid overload, unspecified; E86.0 Dehydration; I10 Essential (primary) hypertension; R79.1 Abnormal coagulation profile; R79.89 Other specified abnormal findings of blood chemistry; K76.1 Chronic passive congestion of liver; K76.0 Fatty (change of) liver, not elsewhere classified; Z79.1 Long term (current) use of non-steroidal anti-inflammatories (NSAID); Z85.46 Personal history of malignant neoplasm of prostate; Z72.89 Other problems related to lifestyle
CPT/HCPCS: 36415; 51798; 71045; 71046; 74177; 76770; 80048; 80053; 80076; 81001; 82272; 82607; 82746; 83540; 83605; 83690; 83735; 83880; 84132; 84466; 85014; 85018; 85025; 85610; 86850; 86900; 86901; 86920; 87040; 87086; 87275; 87276; 93971; 96365; 97161; 97166; 97530; 99284; 99285; A9270; J7120; P9016; Q9967; 81003